=== PATIENT | female | born 1995 | race Caucasian/White ===

== ENCOUNTER → 2017-12-02 16:35 | Outpatient (CLI) | payer SELFPAY ==
--- NOTE | 2017-12-02 16:36 | US_ITS ---
STUDY: SECOND AND THIRD TRIMESTER OBSTETRICAL ULTRASOUND REASON FOR EXAM: Female, 21 years old. Evaluation of anatomy. LMP: 07/22/2017 TECHNIQUE: Transabdominal. PRIOR ULTRASOUND: 10/28/2017 FINDINGS: There is a single intrauterine fetus. The fetus is in a cephalic presentation. There is demonstrated cardiac activity with a heart rate of 143 bpm. There is a normal amniotic fluid volume. The largest amniotic fluid pocket measures 6.7 cm. The placenta is anterior and not low-lying. There are Grade 0 placental changes. The cervix measures 4.8 cm in length. The adnexal regions are not visualized. BIOMETRY: BPD: 4.67 cm: 20 weeks, 1 days HC: 17.5 cm: 20 weeks, 1 days AC: 14.8 cm: 20 weeks, 1 days FL: 3.1 cm: 19 weeks, 5 days CI: 82 FL/AC: 21 HC/AC: 1.18 age by current US: 20 weeks, 1 days. ALBINA by current US: 04/20/2018. Estimated weight: 322 grams, +/- 47 grams, 92 %. Age by LMP: 19 weeks, 0 days. ALBINA by LMP: 04/28/2018. ANATOMY: Gender: Indeterminant Cranium: Normal lateral ventricles. Normal choroid plexus. Normal cerebellum. Normal cisterna magna. Normal face, nose and lips. Chest: Normal 4-chamber heart. Abdomen/Pelvis: Normal diaphragm. Normal stomach. Normal abdominal wall. Normal cord insertion. Normal 3 vessel cord. Normal kidneys. Normal bladder. Spine: Normal cervical spine. Normal thoracic spine. Normal lumbar spine. Normal sacrum. Extremities: Normal bilateral upper extremities. Normal bilateral lower extremities. US/OB Anatomy Scan IMPRESSION: Single living intrauterine fetus of 20 weeks and 1 day with an ALBINA of 04/20/2018. Normal amniotic fluid volume. Grade 0, anterior and not low lying placenta. Cervical length of 4.8 cm. weight of 322 g +/- 47 g, 92nd percentile. Normal anatomy. Electronically Signed: Laura Campbell MD at 0:02 EST , Service support ,
== END ==
PROVIDERS: Family Provider Family Medicine; PCP Family Medicine; Visit Provider Obstetrics & Gynecology
DX: Z34.92 Encounter for supervision of normal pregnancy, unspecified, second trimester (principal); Z3A.20 20 weeks gestation of pregnancy
CPT/HCPCS: 76805

== ENCOUNTER → 2017-12-30 17:55 | Outpatient (CLI) | payer SELFPAY | PROVIDERS: Visit Provider Obstetrics & Gynecology | DX: Z34.90 Encounter for supervision of normal pregnancy, unspecified, unspecified trimester (principal); Z3A.00 Weeks of gestation of pregnancy not specified | CPT/HCPCS: 87086 ==

== ENCOUNTER → 2018-01-27 12:48 | Outpatient (CLI) | payer SELFPAY ==
[2018-01-27 13:43] LABS: Absolute Lymphocyte Count 1.79 X10^3/ul (0.83-4.51); Absolute Neutrophil Count 8.3 X10^3/uL (2.0-7.7); Basophil# 0.02 X10^3/uL; Basophil% 0.2 % (0-1); Eosinophil# 0.18 X10^3/uL; Eosinophils% 1.6 % (0-5); Hematocrit 37.1 % (37-47); Lymphocyte # 1.79 X10^3/ul (4.0); Lymphocyte % 16.1 % (19-41); Mean Corp Hgb Conc 32.3 g/gl (32-36); Mean Corpuscular Hgb 28.4 pg (27.0-32.0); Mean Corpuscular Volume 87.9 fL (81-99); Mean Platelet Vol. 9.7 fl (6.2-12.0); Monocyte# 0.74 X10^3/uL; Monocyte% 6.7 % (0-10); Neutrophil # 8.31 X10^3/uL (2.7-7.7); Neutrophil % 74.7 % (47-70); Platelet Count 217 K/mm3 (150-450); RBC Distribution Width CV 13.3 % (11.6-14.6); RBC Distribution Width SD 42.5 fl (35.1-43.9); Red Blood Count 4.22 M/mm3 (4.2-5.4); White Blood Count 11.1 K/mm3 (4.4-11.0)
[2018-01-27 13:49] LABS: POSITIVE COUNT NO; POSITIVE DIFFERENTIAL NO; POSITIVE MORPHOLOGY NO
[2018-01-27 13:56] LABS: Glucose Challenge Gest 1H 50g 143 mg/dL (70-140)
== END ==
PROVIDERS: Family Provider Family Medicine; PCP Family Medicine; Visit Provider Obstetrics & Gynecology
DX: Z34.01 Encounter for supervision of normal first pregnancy, first trimester (principal)
CPT/HCPCS: 36415; 82950; 85025

== ENCOUNTER → 2018-01-31 06:47 | Outpatient (CLI) | payer SELFPAY ==
[2018-01-31 07:18] LABS: Glucose GTT-Gestation. Fasting 81 mg/dL (<105)
[2018-01-31 08:34] LABS: Glucose GTT-Gestational 1 Hr 147 mg/dL (<190)
[2018-01-31 09:37] LABS: Glucose GTT-Gestational 2 Hr 104 mg/dL (<165)
[2018-01-31 10:33] LABS: Glucose GTT-Gestational 3 Hr 118 L (<145)
== END ==
PROVIDERS: Family Provider Family Medicine; PCP Family Medicine; Visit Provider Nurse Practitioner Women's Health
DX: O99.810 Abnormal glucose complicating pregnancy (principal); Z3A.00 Weeks of gestation of pregnancy not specified
CPT/HCPCS: 36415; 82951; 82952

== ENCOUNTER → 2018-03-24 14:42 | Outpatient (CLI) | payer SELFPAY ==
--- NOTE | 2018-03-24 14:44 | VDLE_ITS ---
Reason For Study: LEG PAIN AND SWELLING RIGHT LEFT GSV is normal. CFV is compressible, spontaneous, phasic, CFV is compressible, spontaneous, phasic, competent, and demonstrates normal competent and demonstrates normal augmentation. augmentation. FV is compressible, spontaneous, phasic, competent and demonstrates normal augmentation. POP V is compressible, spontaneous, phasic, competent and demonstrates normal augmentation. T/P Trunk is compressible. PTV is compressible. RT PerV is compressible. Procedure Exam performed in department. A preliminary report was called and/or faxed to Dr. Thacker. Interpretation Summary There is no evidence of right lower extremity deep vein thrombosis. Right greater saphenous vein appears patent and compressible segmentally. Normal flow patterns left common femoral vein Ordering Physician: Nyla Thacker Referring Physician: Nyla Thacker Performed By: Kimmie Sr RVT
== END ==
PROVIDERS: Family Provider Family Medicine; PCP Family Medicine; Visit Provider Obstetrics & Gynecology
DX: M79.661 Pain in right lower leg (principal)
CPT/HCPCS: 93971

== ENCOUNTER → 2018-03-31 17:39 | Outpatient (CLI) | payer SELFPAY ==
[2018-03-31 19:00] LABS: Group B Strep DNA By PCR Negative (Negative); Internal Control PASS; Probe Check PASS; Specimen Processing Control PASS
== END ==
PROVIDERS: Visit Provider Obstetrics & Gynecology
DX: Z34.90 Encounter for supervision of normal pregnancy, unspecified, unspecified trimester (principal)
CPT/HCPCS: 87081; 87653

== ENCOUNTER → 2018-04-14 12:09 | Outpatient (CLI) | payer SELFPAY ==
--- NOTE | 2018-04-14 12:30 | US_ITS ---
STUDY: SECOND AND THIRD TRIMESTER OBSTETRICAL ULTRASOUND - LIMITED REASON FOR EXAM: Female, 22 years old. growth. LMP: 12/02/2017 PRIOR ULTRASOUND: None. TECHNIQUE: Transabdominal ultrasound evaluation was performed. FINDINGS: There is a single intrauterine fetus. The fetus is in a cephalic presentation. There is demonstrated cardiac activity with a heart rate of 146 bpm. There is a normal amniotic fluid volume. The largest amniotic fluid pocket measures 4.7 cm. The amniotic fluid index (HPAM) is 9.1 cm. The placenta is posterior in location and is not low lying. There are Grade 1 placental changes. The cervix measures 6.3 cm in length. BIOMETRY: BPD: 9.2: 37 weeks, 4 days HC: 33.3: 38 weeks, 0 days AC: 34.1: 38 weeks, 0 days FL: 7.4: 38 weeks, 0 days Age by LMP: 38 weeks, 0 days. ALBINA by LMP: 04/28/2018. age by prior US: weeks, days. ALBINA by prior US: . age by current US: 38 weeks, 0 days. ALBINA by current US: 04/28/2018. Estimated weight: 3348 grams, +/- 489 grams, 61 percentile. Gender: US/OB Limited With Biometrics IMPRESSION: Single live fetus in a vertex presentation. survey not performed on this exam. Placenta is grade 1 and is not low-lying. Cervix is closed. age by current US: 38 weeks, 0 days. ALBINA by current US: 04/28/2018. Estimated weight: 3348 grams, +/- 489 grams, 61 percentile. Electronically Signed: Darien Agarwal MD at 17:51 EDT , Service support ,
== END ==
PROVIDERS: Visit Provider Obstetrics & Gynecology
DX: O26.843 Uterine size-date discrepancy, third trimester (principal); Z3A.00 Weeks of gestation of pregnancy not specified
CPT/HCPCS: 76816

== ENCOUNTER 2018-04-22 11:30 | Inpatient (IN) | payer SELFPAY ==
[2018-04-22 12:01] VITALS: BMI 34.0
[2018-04-22] MEDS: Lactated Ringers 1,000 ML 50 ML IV ×3 (12:15→18:07)
[2018-04-22 12:34] LABS: Hematocrit 39.3 % (37-47); Hemoglobin 12.5 g/dl (12.0-15.0); Mean Corp Hgb Conc 31.8 g/gl (32-36); Mean Corpuscular Volume 78.4 fL (81-99); Mean Platelet Vol. 10.8 fl (6.2-12.0); Platelet Count 230 K/mm3 (150-450); RBC Distribution Width CV 15.3 % (11.6-14.6); RBC Distribution Width SD 43.8 fl (35.1-43.9); Red Blood Count 5.01 M/mm3 (4.2-5.4); White Blood Count 22.7 K/mm3 (4.4-11.0)
[2018-04-22 12:37] LABS: Scan Indicated on CBC? Y/N NO
[2018-04-22] MEDS: fentaNYL-bupivacaine (epidural) 100 ML BAG EPIDURAL ×2 (12:49→17:00)
--- NOTE | 2018-04-22 18:53 | HP.PCM_ITS ---
- Problem List (1) Uterine size-date discrepancy in third trimester Status: Acute Comment: growth us (2) Hypothyroidism (acquired) Status: Acute Comment: managed by Dr White, increased in third trimester (3) Abnormal glucose tolerance test during , antepartum Status: Acute Comment: 3 hr GTT normal (4) Asymptomatic bacteriuria during Status: Acute Comment: treated, culture repeated and negative (5) Supervision of normal Status: Acute Qualifiers: Comment: PRR ALBINA 04/28/18 gender surprise Leigha History Date of Admission: 04/22/18 Final ALBINA: 04/28/18 Gestational age: 39 Weeks and 1 Days History of this : This is a 22 year-old, at 39 weeks gestational age prsents IAL. she presents at 6 cm and regular ctx Medical History: Medical History (Last Reviewed 04/21/18 @ 09:23 by Caren Galloway) Hypothyroid E03.9 thyroid biopsy Allergies No Known Allergies Allergy (Verified 04/21/18 09:22) Home Medications: Home Medications vitamin,calcium,jbafexrs-jagq-pkfid acid tablet 1 tab PO QDAY 10/12/17 promethazine 12.5 mg tablet 12.5 mg PO Q6H PRN #60 tab 02/23/18 levothyroxine 150 mcg tablet 150 mcg PO QDAY 03/10/18 Smoking Status: Never smoker History Past Pregnancies: Past Pregnancies Delivery Date Name GA/Weeks Outcome Route Weight Gender Labor Length Anesthesia Delivery Location Provider FOB Labs: Mom's Labs & Results 04/22/18 04/22/18 12:15 12:15 WBC 22.7 H RBC 5.01 Hgb 12.5 Hct 39.3 MCV 78.4 L MCH 25.0 L MCHC 31.8 L RDW 15.3 H RDW Differential 43.8 Plt Count 230 MPV 10.8 Blood Type A POSITIVE Antibody Screen NEGATIVE Course Did the patient receive Yes care? Labs Blood Type: A RH: POSITIVE RPR/VDRL/Syphilis Nonreactive Rubella status Immune HbSAg Negative Date Done: 10/07/17 Chlamydia Negative Gonorrhea Negative HIV/AIDS Non-Reactive Group B Strep: Negative Current Obstetrical History Gestational Diabetes No Incompetent Cervix No Infertility No IUGR No Macrosomia No Hypertension/Pre-eclampsia No Placenta Previa/Abruption Yes: resolved at 19 wks PTL/PROM No Uterine anomaly No Oligohydramnios No Polyhydramnios No Multiple gestation No Past Medical History Asthma No Diabetes No Hypertension No Heart disease No Mitral valve prolapse No Neurologic/Seizure disorder/ No Migraines Kidney disease No Liver disease No Varicosities No Clotting disorders/Hx of DVT No Thyroid Dysfunction Yes: hypothyroidism.Thyroid biopsy: WNL Other medical diseases No Psychiatric disorders No Major trauma No Abnormal PAP smear No Sleep apnea No Mammogram in the last 2 years No Social History Marital Status: Alleged father Leigha Hx Smoking No Smoking Status Never smoker Expected Delivery Method: Spontaneous Vaginal Review of Systems Constitutional: Denies: Fever, Malaise Eyes: Denies: Blurred vision, Vision Change HEENT: Denies: Head Aches, Visual Changes Cardiovascular: Denies: Chest Pain, Palpitations Respiratory: Denies: Cough, Shortness of Breath, Wheezing Gastrointestinal: Denies: Abdominal Pain, Diarrhea, Nausea, Vomiting Genitourinary: Denies: Dysuria, Hematuria Musculoskeletal: Denies: Joint Pain, Muscle pain Skin: Denies: Lesions, Rash Neurological: Denies: Blurred vision, Focal weakness, Headaches Psychiatric: Denies: Anxiety, Depression Endocrine: Denies: Heat/ Cold Intolerance Hematologic/ Lymphatic: Denies: Easy Bruising, Easy Bleeding Physical Exam General: Alert, Cooperative, No apparent distress HEENT: Atraumatic, Normocephalic. Negative for: Thyromegaly, Lymphadenopathy Cardiovascular: Regular rate Lungs: Normal air movement Abdomen: Soft, Non Tender, Gravid Neurological: Deep Tendon Reflexes 2+/4 and Symmetrical, Neuro grossly intact. Negative for: Clonus [employer]: Normal external genitalia. Negative for: Vulvar lesions Estimated gestational size: Appropriate for gestational size Presentation: Cephalic Assessment/Plan All Active Problems (Last Reviewed 04/21/18 @ 09:23 by Caren Galloway) Uterine size-date discrepancy in third trimester (Acute) Hypothyroidism (acquired) (Acute) Abnormal glucose tolerance test during , antepartum (Acute) Asymptomatic bacteriuria during (Acute) Supervision of normal (Acute) Bleeding in early (Resolved) Marginal placenta previa (Resolved) This is a 22 year-old, at 39 weeks gestational age. exp management
[2018-04-22] MEDS: Oxytocin 30 units/NS 500 ml 30 UNITS/500 ML IV.SOLN 334 UNITS IV (22:32)
[2018-04-22] MEDS: Silver Nitrate (BKC) 4 EACH TOPICAL (22:50)
[2018-04-22] MEDS: Oxytocin 30 units/NS 500 ml 30 UNITS/500 ML IV.SOLN 167 UNITS IV (23:02)
--- NOTE | 2018-04-22 23:23 | PCM.OB.VAG ---
- Problem List (1) Uterine size-date discrepancy in third trimester Status: Acute Comment: growth us (2) Hypothyroidism (acquired) Status: Acute Comment: managed by Dr White, increased in third trimester (3) Abnormal glucose tolerance test during , antepartum Status: Acute Comment: 3 hr GTT normal (4) Asymptomatic bacteriuria during Status: Acute Comment: treated, culture repeated and negative (5) Supervision of normal Status: Acute Qualifiers: Comment: PRR ALBINA 04/28/18 gender surprise Leigha Vaginal Delivery Maternal Presentation: Active Labor G1Po @ 39w1d IAL Amniotic Membrane Rupture Type: Artificial Final ALBINA: 04/28/18 Gestational age: 39 Weeks and 1 Days Date of Procedure: 04/22/18 Pre-Operative Diagnosis: ial Post-Operative Diagnosis: same Surgery/ Procedure Performed: Spontaneous Vaginal Delivery Type of Anesthesia: Epidural, Local with 1% lidocaine Description of Procedure: patient proceeded to complete pushed for over 4 hours with progress, midline episiotomy was cut and the head delivered atraumatically followed by the anterior and posterior shoulders after a loose nuchal cord x 1 was reduced over the infant's head. she delivered the anterior and posterior shoulders without complication and was placed on the maternal abdomen. cord was clamped and cut. placenta delivered spontaneously immediately following and methergine given for some mild atony. 3rd degree perineal laceration was seen and repaired in the usual fashion with 2--0 and 3-0 vicryl. Presentation: EDISON Placental Delivery Description: Spontaneous Placenta Disposition: [facility] Cord Vessel Description: 3 Vessels Cord Gases drawn per routine: ABG, VBG Cord Entanglement: Around neck x 1, loose Estimated Blood Loss: 600 A gender: Male Episiotomy Description: Midline Laceration: Perineal Extension/lac, 2nd degree Medications given after delivery: IV Pitocin Complications: None
[2018-04-23] MEDS: Ondansetron 4 MG/2 ML Vial IV (01:52)
[2018-04-23 03:13] VITALS: BP 107/62; PULSE 112; RESP 16; TEMP 36.9; O2SAT 96
[2018-04-23] MEDS: Naproxen 250 MG Tablet PO ×2 (05:45→15:12)
[2018-04-23] MEDS: Acetaminophen 500 MG Tablet 1000 MG PO ×2 (06:42→21:02)
[2018-04-23] MEDS: oxyCODONE 5 MG Tablet PO ×3 (08:20→18:58)
--- NOTE | 2018-04-23 08:23 | PCM.PN.OB ---
Subjective: tired and painful, doing okay overall. swollen. no cp sob n v voiding - Physical Exam General: Alert, Oriented x3 Vital Signs Temp Pulse Resp BP Pulse Ox 98.5 F 112 H 16 107/62 96 04/23/18 03:13 04/23/18 03:13 04/23/18 03:13 04/23/18 03:13 04/23/18 03:13 Oxygen Delivery Method Room Air Weight: 189 lb 3.2 oz Body Mass Index (BMI) 34.0 Intake and Output for Last 24 Hours 04/21/18 04/22/18 04/23/18 23:59 23:59 23:59 Output Total 400 / 400 Balance -400 / -400 Laboratory Tests Past 24 Hrs 04/22/18 04/22/18 12:15 12:15 WBC 22.7 H RBC 5.01 Hgb 12.5 Hct 39.3 MCV 78.4 L MCH 25.0 L MCHC 31.8 L RDW 15.3 H RDW Differential 43.8 Plt Count 230 MPV 10.8 Blood Type A POSITIVE Antibody Screen NEGATIVE Medical Necessity - Tobacco Use Smoking Status: Never smoker Assessment/Plan All Active Problems (Last Reviewed 04/21/18 @ 09:23 by Caren Galloway) Uterine size-date discrepancy in third trimester (Acute) Hypothyroidism (acquired) (Acute) Abnormal glucose tolerance test during , antepartum (Acute) Asymptomatic bacteriuria during (Acute) Supervision of normal (Acute) Bleeding in early (Resolved) Marginal placenta previa (Resolved) s/p routine care doing well
[2018-04-23 09:55] VITALS: BP 93/55; PULSE 116; RESP 20; TEMP 36.4; O2SAT 97
[2018-04-23] MEDS: Dibucaine 30 GM Tube 1 APPLIC TOPICAL (10:21)
[2018-04-23] MEDS: Senna/Docusate Sodium 1 Tablet PO (10:21)
[2018-04-23 13:00] VITALS: BP 100/59; PULSE 110; RESP 18; TEMP 36.5; O2SAT 96
[2018-04-23] MEDS: Prenatal Vits Tablet 1 TABLET PO (13:18)
[2018-04-23 17:00] VITALS: BP 84/83; PULSE 103; RESP 16; TEMP 36.5; O2SAT 96
[2018-04-23 20:00] VITALS: BP 95/54; PULSE 115; RESP 16; TEMP 36.6; O2SAT 99
[2018-04-24 03:00] VITALS: BP 97/57; PULSE 109; RESP 18; TEMP 36.5; O2SAT 97
[2018-04-24] MEDS: oxyCODONE 5 MG Tablet PO ×3 (03:14→13:40)
[2018-04-24] MEDS: Levothyroxine 150 MCG Tablet PO (05:47)
--- NOTE | 2018-04-24 07:31 | PCM.PN.OB ---
Subjective: doing well no complaints - Physical Exam General: Alert, Oriented x3 Vital Signs Temp Pulse Resp BP Pulse Ox 97.7 F L 109 H 18 97/57 L 97 04/24/18 03:00 04/24/18 03:00 04/24/18 03:00 04/24/18 03:00 04/24/18 03:00 Oxygen Delivery Method Room Air Weight: 189 lb 3.2 oz Body Mass Index (BMI) 34.0 Intake and Output for Last 24 Hours 04/22/18 04/23/18 04/24/18 23:59 23:59 23:59 Output Total 400 / 400 Balance -400 / -400 Medical Necessity - Tobacco Use Smoking Status: Never smoker Assessment/Plan All Active Problems (Last Reviewed 04/21/18 @ 09:23 by Caren Galloway) Uterine size-date discrepancy in third trimester (Acute) Hypothyroidism (acquired) (Acute) Abnormal glucose tolerance test during , antepartum (Acute) Asymptomatic bacteriuria during (Acute) Supervision of normal (Acute) Bleeding in early (Resolved) Marginal placenta previa (Resolved) s/p routine care [facility]
--- NOTE | 2018-04-24 07:32 | DCINST_ITS ---
Discharge Diet: No Restrictions Discharge Activity: Return to Normal Activity, May not drive while taking narcotic pain medications., May Shower May resume sexual activity in: 4-6 weeks Call your doctor if your incision/area has: Continuous Slow Oozing, Sudden Increased Bleeding, Increased Pain/ Swelling, Increased Redness, Foul Smelling Discharge Additional Instructions: If you experience any of the following, contact your healthcare provider. * Bleeding that soaks a pad every hour for 2 hours * Fever 100.4 or higher * Unrelieved incision or abdominal pain * Swelling, redness, discharge or bleeding from your incision or episiotomy site * Your incision begins to separate * Problems urinating (including inability to urinate or burning while urinating) . * Visual changes * Severe headache * Flu-like symptoms * Pain or redness in one of both of your breasts * Pain, warmth, tenderness or swelling in your legs, especially the calf area * Frequent nausea and vomiting * Symptoms of depression or anxiety If you experience any of the following, call 911 or go to the nearest Emergency Room. * Chest pain * Problems breathing * Seizure activity * Partial or complete paralysis of a body part, slurred speech, weakness or drooping of the face, or a sudden inability to walk or hold your balance Allergies/Adverse Reactions: Allergies No Known Allergies Allergy (Verified 04/21/18 09:22) Medications to take at Discharge vitamin,calcium,pejvqdrb-qqjy-ovmga acid tablet 1 tab PO QDAY 10/12/17 promethazine 12.5 mg tablet 12.5 mg PO Q6H PRN #60 tab 02/23/18 levothyroxine 150 mcg tablet 150 mcg PO QDAY 03/10/18 Please Follow Up With: Nyla Thacker MD - [phone] When: Call to make an appointment with your doctor in 6 weeks. If you had elevated Blood pressure or 4th degree laceration you will need to be seen in 2 weeks. Primary Care Physician: Care Physician,No Primary [Primary Care Provider] - Test Results: Test results from this visit will be discussed in further detail at your follow- up appointment, if applicable.
--- NOTE | 2018-04-24 07:32 | PCM.DCVAG ---
Discharge Diet: No Restrictions Discharge Activity: Return to Normal Activity, May not drive while taking narcotic pain medications., May Shower May resume sexual activity in: 4-6 weeks Call your doctor if your incision/area has: Continuous Slow Oozing, Sudden Increased Bleeding, Increased Pain/ Swelling, Increased Redness, Foul Smelling Discharge Additional Instructions: If you experience any of the following, contact your healthcare provider. Bleeding that soaks a pad every hour for 2 hours Fever 100.4 or higher Unrelieved incision or abdominal pain Swelling, redness, discharge or bleeding from your incision or episiotomy site Your incision begins to separate Problems urinating (including inability to urinate or burning while urinating). Visual changes Severe headache Flu-like symptoms Pain or redness in one of both of your breasts Pain, warmth, tenderness or swelling in your legs, especially the calf area Frequent nausea and vomiting Symptoms of depression or anxiety If you experience any of the following, call 911 or go to the nearest Emergency Room. Chest pain Problems breathing Seizure activity Partial or complete paralysis of a body part, slurred speech, weakness or drooping of the face, or a sudden inability to walk or hold your balance Allergies/Adverse Reactions: Allergies No Known Allergies Allergy (Verified 04/21/18 09:22) Medications to take at Discharge vitamin,calcium,zarhqjlt-hgsf-ysawc acid tablet 1 tab PO QDAY 10/12/17 promethazine 12.5 mg tablet 12.5 mg PO Q6H PRN #60 tab 02/23/18 levothyroxine 150 mcg tablet 150 mcg PO QDAY 03/10/18 Please Follow Up With: Nyla Thacker MD - [phone] When: Call to make an appointment with your doctor in 6 weeks. If you had elevated Blood pressure or 4th degree laceration you will need to be seen in 2 weeks. Primary Care Physician: Care Physician,No Primary [Primary Care Provider] - Test Results: Test results from this visit will be discussed in further detail at your follow-up appointment, if applicable.
[2018-04-24 08:50] VITALS: BP 91/51; PULSE 99; RESP 16; TEMP 37.1; O2SAT 96
[2018-04-24] MEDS: Senna/Docusate Sodium 1 Tablet PO (09:24)
[2018-04-24] MEDS: Hydrocortisone 2.5% Crm 1 APPLIC TOPICAL (09:24)
[2018-04-24] MEDS: Naproxen 250 MG Tablet PO (11:00)
[2018-04-24] MEDS: Prenatal Vits Tablet 1 TABLET PO (12:53)
[2018-04-24 14:00] VITALS: BP 99/54; PULSE 106; RESP 18; TEMP 36.7; O2SAT 97
[2018-04-24 20:59] VITALS: BP 106/70; PULSE 102; RESP 17; TEMP 37.1
== END 2018-04-24 20:35 | disposition home or self-care (01) | DRG 775 ==
PROVIDERS: Admitting Provider Obstetrics & Gynecology; Visit Provider Obstetrics & Gynecology
DX: O26.843 Uterine size-date discrepancy, third trimester (principal); O75.89 Other specified complications of labor and delivery; O69.81X0 Labor and delivery complicated by cord around neck, without compression, not applicable or unspecified; O99.284 Endocrine, nutritional and metabolic diseases complicating childbirth; E03.9 Hypothyroidism, unspecified; Z79.899 Other long term (current) drug therapy; Z3A.39 39 weeks gestation of pregnancy; Z37.0 Single live birth
CPT/HCPCS: 59050; 85027; 86850; 86900; 99218; J7120; G0378; J2405

== ENCOUNTER → 2018-06-02 18:13 | Outpatient (CLI) | payer SELFPAY ==
[2018-06-08 08:15] LABS: HPV Reflexed? NOT INDICATED
== END ==
PROVIDERS: Visit Provider Obstetrics & Gynecology
DX: Z12.4 Encounter for screening for malignant neoplasm of cervix (principal)
CPT/HCPCS: 88175; G0145

== ENCOUNTER → 2019-03-14 08:26 | Outpatient (CLI) | payer SELFPAY ==
[2019-02-21 08:27] VITALS: BMI 26.0
[2019-03-14 10:24] LABS: T4 Free Direct 1.27 ng/dL (0.76-1.46); Thyroid Stim Hormone (TSH) 0.61 uIU/mL (0.358-3.74)
== END ==
PROVIDERS: Referring Provider Family Medicine; Visit Provider Family Medicine
DX: E03.9 Hypothyroidism, unspecified (principal)
CPT/HCPCS: 36415; 84439; 84443

== ENCOUNTER → 2019-06-09 09:33 | Outpatient (CLI) | payer SELFPAY ==
[2019-02-21 08:27] VITALS: BMI 26.0
[2019-06-09 13:05] LABS: T4 Free Direct 1.37 ng/dL (0.76-1.46); Thyroid Stim Hormone (TSH) 1.62 uIU/mL (0.358-3.74)
== END ==
PROVIDERS: Family Provider Family Medicine; PCP Family Medicine; Referring Provider Family Medicine; Visit Provider Family Medicine
DX: E03.9 Hypothyroidism, unspecified (principal)
CPT/HCPCS: 36415; 84439; 84443

== ENCOUNTER → 2019-07-03 17:14 | Outpatient (CLI) | payer SELFPAY ==
[2019-07-03 12:04] VITALS: BMI 26.0
[2019-07-03 19:26] LABS: Chlamydia Trachomatis by PCR Negative (Negative); Neisserai gonorrhoeae by PCR Negative (Negative); Probe Check PASS; Sample Adequacy Control PASS; Specimen Processing Control PASS
== END ==
PROVIDERS: Family Provider Family Medicine; PCP Family Medicine; Referring Provider Obstetrics & Gynecology; Visit Provider Obstetrics & Gynecology
DX: Z34.90 Encounter for supervision of normal pregnancy, unspecified, unspecified trimester (principal)
CPT/HCPCS: 87086; 87088; 87491; 87591

== ENCOUNTER → 2019-08-15 11:04 | Outpatient (CLI) | payer SELFPAY ==
[2019-07-31 10:15] VITALS: BMI 26.0
[2019-08-15 12:00] LABS: Absolute Lymphocyte Count 1.69 X10^3/uL (0.83-4.51); Absolute Neutrophil Count 5.3 X10^3/uL (2.0-7.7); Basophil# 0.02 X10^3/uL; Basophil% 0.3 % (0-1); Eosinophil# 0.07 X10^3/uL; Eosinophils% 0.9 % (0-5); Hematocrit 40.9 % (37-47); Hemoglobin 13.4 g/dL (12.0-15.0); Lymphocyte # 1.69 X10^3/ul (4.0); Lymphocyte % 22.7 % (19-41); Mean Corp Hgb Conc 32.8 g/dL (32-36); Mean Corpuscular Volume 85.6 fL (81-99); Mean Platelet Vol. 10.1 fl (6.2-12.0); Monocyte# 0.31 X10^3/uL; Monocyte% 4.2 % (0-10); NRBC Flagged by Analyzer 0 % (0-5); Neutrophil # 5.31 X10^3/uL (2.7-7.7); Neutrophil % 71.2 % (47-70); Platelet Count 211 K/mm3 (150-450); RBC Distribution Width CV 14.1 % (11.6-14.6); RBC Distribution Width SD 43.9 fl (35.1-43.9); Red Blood Count 4.78 M/mm3 (4.2-5.4); White Blood Count 7.5 K/mm3 (4.4-11.0)
[2019-08-15 12:59] LABS: HIV - WCH Non-Reactive (Nonreactive); Hepatitis B Surface Antigen Non-Reactive (Nonreactive); Rubella IgG 45.1 IU/mL
[2019-08-17 02:20] LABS: Rapid Plasmin Reagin (RPR) NONREACTIVE (NONREACTIVE)
== END ==
PROVIDERS: Family Provider Family Medicine; PCP Family Medicine; Referring Provider Obstetrics & Gynecology; Visit Provider Obstetrics & Gynecology
DX: Z34.90 Encounter for supervision of normal pregnancy, unspecified, unspecified trimester (principal)
CPT/HCPCS: 36415; 85025; 86592; 86703; 86762; 86850; 86900; 86901; 87340

== ENCOUNTER → 2019-09-11 11:13 | Outpatient (CLI) | payer SELFPAY ==
[2019-08-28 10:48] VITALS: BMI 26.0
[2019-09-11 12:26] LABS: T4 Free Direct 1.08 ng/dL (0.76-1.46); Thyroid Stim Hormone (TSH) 6.62 uIU/mL (0.358-3.74)
== END ==
PROVIDERS: Family Provider Family Medicine; PCP Family Medicine; Referring Provider Family Medicine; Visit Provider Family Medicine
DX: E03.9 Hypothyroidism, unspecified (principal)
CPT/HCPCS: 36415; 84439; 84443

== ENCOUNTER → 2019-11-03 10:16 | Outpatient (CLI) | payer SELFPAY ==
[2019-10-23 11:02] VITALS: BMI 26.0
[2019-11-03 12:58] LABS: T4 Free Direct 1.13 ng/dL (0.76-1.46); Thyroid Stim Hormone (TSH) 1.78 uIU/mL (0.358-3.74)
== END ==
PROVIDERS: PCP Family Medicine; Referring Provider Family Medicine; Visit Provider Family Medicine
DX: E03.9 Hypothyroidism, unspecified (principal)
CPT/HCPCS: 36415; 84439; 84443

== ENCOUNTER → 2019-11-13 09:17 | Outpatient (CLI) | payer SELFPAY ==
[2019-10-23 11:02] VITALS: BMI 26.0
[2019-11-13 09:46] LABS: Absolute Lymphocyte Count 1.66 X10^3/uL (0.83-4.51); Absolute Neutrophil Count 7.3 X10^3/uL (2.0-7.7); Basophil# 0.03 X10^3/uL; Basophil% 0.3 % (0-1); Eosinophil# 0.11 X10^3/uL; Eosinophils% 1.1 % (0-5); Hemoglobin 12.9 g/dL (12.0-15.0); Lymphocyte # 1.66 X10^3/ul (4.0); Lymphocyte % 17.1 % (19-41); Mean Corp Hgb Conc 32.3 g/dL (32-36); Mean Corpuscular Hgb 29.3 pg (27.0-32.0); Mean Corpuscular Volume 90.9 fL (81-99); Mean Platelet Vol. 9.8 fl (6.2-12.0); Monocyte# 0.51 X10^3/uL; Monocyte% 5.2 % (0-10); NRBC Flagged by Analyzer 0 % (0-5); Neutrophil # 7.25 X10^3/uL (2.7-7.7); Neutrophil % 74.7 % (47-70); Platelet Count 177 K/mm3 (150-450); RBC Distribution Width CV 13.6 % (11.6-14.6); RBC Distribution Width SD 45.8 fl (35.1-43.9); White Blood Count 9.7 K/mm3 (4.4-11.0)
[2019-11-13 10:02] LABS: Glucose Challenge Gest 1H 50g 103 mg/dL (70-140)
== END ==
PROVIDERS: PCP Family Medicine; Referring Provider Obstetrics & Gynecology; Visit Provider Obstetrics & Gynecology
DX: Z34.80 Encounter for supervision of other normal pregnancy, unspecified trimester (principal)
CPT/HCPCS: 36415; 82950; 85025

== ENCOUNTER → 2019-12-25 10:39 | Outpatient (CLI) | payer SELFPAY ==
[2019-12-25 11:16] LABS: T4 Free Direct 1.06 ng/dL (0.76-1.46); Thyroid Stim Hormone (TSH) 2.31 uIU/mL (0.358-3.74)
== END ==
PROVIDERS: PCP Family Medicine; Referring Provider Nurse Practitioner Women's Health; Visit Provider Nurse Practitioner Women's Health
DX: E03.9 Hypothyroidism, unspecified (principal)
CPT/HCPCS: 36415; 84439; 84443

== ENCOUNTER → 2020-01-08 | Outpatient (CLI) | payer SELFPAY | END | disposition home or self-care (01) | LOC: LABSPEC 14:32 | PROVIDERS: PCP Family Medicine; Visit Provider Obstetrics & Gynecology | DX: Z34.80 Encounter for supervision of other normal pregnancy, unspecified trimester (principal) | CPT/HCPCS: 87081 ==

== ENCOUNTER 2020-02-01 18:40 | Outpatient (CLI) | payer SELFPAY ==
[2020-02-01 18:51] VITALS: BP 111/71; PULSE 88; BMI 32.5
--- NOTE | 2020-02-02 02:05 | OB.TRI.PN_ITS ---
Progress Notes Date of Service: 02/01/20 Progress Note: FHT: 130 Moderate variability reactive no decelerations category I tracing [place]: no regular Contractions decreased movement, reactive NST dc home - Problem List (1) Decreased movement Status: Acute Multi Select Codes - Urinary/Genital Urinary/Genital CPT Codes: 30306-28 non-stress test Interp
== END 2020-02-01 19:35 | disposition home or self-care (01) ==
LOC: WPOUT 18:47 → WP 18:48
PROVIDERS: PCP Family Medicine; Visit Provider Obstetrics & Gynecology
DX: O36.8190 Decreased fetal movements, unspecified trimester, not applicable or unspecified (principal); Z3A.00 Weeks of gestation of pregnancy not specified
CPT/HCPCS: 59025; 59050; 99218; G0378

== ENCOUNTER 2020-02-07 19:00 | Inpatient (IN) | payer SELFPAY ==
[2019-09-27 12:03] VITALS: BMI 26.0
[2020-02-05 10:49] VITALS: BMI 32.5
[2020-02-07 19:19] VITALS: PULSE 98; O2SAT 96
[2020-02-07 19:23] VITALS: BP 108/70; PULSE 86; TEMP 36.9
[2020-02-07] MEDS: Lactated Ringers 1,000 ML 50 ML IV (19:30)
[2020-02-07 19:41] LABS: Absolute Lymphocyte Count 2.41 X10^3/uL (0.83-4.51); Absolute Neutrophil Count 7.4 X10^3/uL (2.0-7.7); Basophil# 0.03 X10^3/uL; Basophil% 0.3 % (0-1); Eosinophil# 0.08 X10^3/uL; Eosinophils% 0.8 % (0-5); Hematocrit 39.9 % (37-47); Hemoglobin 13.2 g/dL (12.0-15.0); Lymphocyte # 2.41 X10^3/ul (4.0); Lymphocyte % 22.7 % (19-41); Mean Corp Hgb Conc 33.1 g/dL (32-36); Mean Corpuscular Hgb 28.6 pg (27.0-32.0); Mean Corpuscular Volume 86.4 fL (81-99); Mean Platelet Vol. 10.3 fl (6.2-12.0); Monocyte# 0.58 X10^3/uL; Monocyte% 5.5 % (0-10); NRBC Flagged by Analyzer 0 % (0-5); Neutrophil # 7.43 X10^3/uL (2.7-7.7); Neutrophil % 69.9 % (47-70); Platelet Count 180 K/mm3 (150-450); RBC Distribution Width CV 14.1 % (11.6-14.6); RBC Distribution Width SD 44.3 fl (35.1-43.9); Red Blood Count 4.62 M/mm3 (4.2-5.4); White Blood Count 10.6 K/mm3 (4.4-11.0)
[2020-02-07 19:46] VITALS: BMI 32.8
[2020-02-07] MEDS: miSOPROStol 25 MCG TABLET VAGINAL (20:08)
[2020-02-07 21:52] VITALS: BP 104/67; PULSE 83; TEMP 36.4; O2SAT 97
[2020-02-08] VITALS (57 sets, daily range): BP systolic 86–117; BP diastolic 50–80; PULSE 70–104; RESP 16–18; TEMP 36.3–37.1; O2SAT 92–99
[2020-02-08] MEDS: Lactated Ringers 500 ML 999 ML IV ×2 (01:02→03:43)
[2020-02-08] MEDS: fentaNYL-bupivacaine (epidural) 100 ML BAG EPIDURAL ×2 (02:22→06:41)
[2020-02-08] MEDS: Acetaminophen 325 MG Tablet PO (02:39)
[2020-02-08] MEDS: Ondansetron 4 MG/2 ML Vial IV (04:58)
[2020-02-08] MEDS: Lactated Ringers 1,000 ML 200 ML IV (04:59)
[2020-02-08] MEDS: Oxytocin 30 units/NS 500 ml 30 UNITS/500 ML IV.SOLN IV (08:42)
[2020-02-08] MEDS: Oxytocin 30 units/NS 500 ml 30 UNITS/500 ML IV.SOLN 334 UNITS IV (11:01)
--- NOTE | 2020-02-08 11:25 | PCM.HPOB.BLA ---
- Problem List (1) Hypothyroidism (acquired) Status: Acute Comment: managed by Dr Riley, increased in third trimester (2) Status: Acute Qualifiers: Comment: Declines genetic, carrier and NTD. Anatomy US normal (3) Supervision of other normal Status: Acute Comment: PRR ALBINA 02/02/20 surprise PC: Leobardo Spouse: Leigha History and Physical Date of Admission: 02/07/20 Intake Vital Signs 02/05/20 BMI 32.5 02/05/20 Height 5 ft 2 in 02/05/20 Weight: 176 lb 6 oz 02/05/20 BMI 32.2 02/05/20 BP 96/68 Intake Visit Reasons: 40 WK OB Director Of Audiology Required: No Is patient in pain?: No Allergies No Known Allergies Allergy (Verified 02/05/20 10:45) Medications PNV 22-iron 27 mg iron-folic acid 1 mg-docusate 50 mg-dha 250 mg pack 1 tab PO QHS ea 07/03/19 [History Confirmed 02/05/20] levothyroxine 150 mcg tablet 150 mcg PO DAILY 09/27/19 [History Confirmed 02/05/20] Last Menstral Period: 04/28/19 Zika: Zika virus screening: Negative : No PFSH PFSH Medical History Hypothyroid (Acute) Loss of consciousness (Acute) thyroid biopsy (Acute) Family History Grandfather Heart disease Father Hypertension Social History (Updated 02/05/20 @ 11:[address] Nyla Thacker MD) adopted: No household members: family housing: house number of children: 1 current occupational exposures/hazards: No history of recent travel: No sexually active: Yes Smoking Status: Never smoker alcohol intake: never substance use type: does not use what type of physical activity do you participate in: none seatbelt use: always do you feel safe at home: Yes additional social history: Spouse Leigha Pregancy History 2 Elective abortions Hx Para 1 Spontaneous abortions Hx # Term Pregnancies Ectopic pregnancies Hx # Pregnancies Multiple births # of living children 1 Past Pregnancies Del. Date Name GA/Weeks Outcome Route Bth Weight Gen Labor Lgth Anesthesia Del Locatn Provider FOB 04/22/18 Leobardo 39 live - full term 9lbs 12oz Male epidural [facility]ANIE Delivery Date: 04/22/18 On 04/26/18 @ 16:10 Chrissy Mcnamara Prolonged 2nd stage- [id number] pushing HPI 40 WK OB: Details: MARKO RIVERS is a 24 year old @ 40w6d presents IOL postdates. OB Visit ALBINA Calculator Estimated Delivery Date Method Current WG Current Estimate 02/02/20 LMP (Certain) 40w 3d Other Estimates 02/06/20 Ultrasound #1 39w 6d Expected Delivery Route/Plan Labor Preferences- labor support person: Leigha pain management options preferred: epidural cut cord/dad catch: yes : yes PP control planned: condoms discussed possible routes of delivery and associated risks: [] special requests: Specific Issue/Plans flu vaccine: declines tdap vaccine: given rhogam: na LARC form signed: yes movement and labor precautions reviewed. Problem list reviewed and updated with the most current plan of care details and appropriate orders placed. Relevant counseling for the gestational age provided. Continue routine care and follow up unless otherwise noted in visit notes/problem list details Initial Weight: 146 lb Date EGA Weight BP Urine Prot Glucose FHR FuHt Pres Dilation Effaced St Visit Note 07/31/19 13w 3d 150 lb 4 oz (+4 lb 4 oz) 90/64 Negative Negative 155 no vb cramping 08/28/19 17w 3d 151 lb (+5 lb) 100/60 90/64 Negative Negative 150 09/27/19 21w 5d 149 lb 4 oz (+3 lb 4 oz) 110/60 Trace Negative 154 No VB, LOF. Good FM. 10/23/19 25w 3d 158 lb 2 oz (+12 lb 2 oz) 114/77 Negative Negative 140 SM- no vb lof good fm no regular ctx. thyroid medicine adjusted, dr riley ordered fu bloodwork 11/13/19 28w 3d 163 lb (+17 lb) 110/82 155 28 SM- no vb lof good fm no regular ctx 11/27/19 30w 3d 164 lb (+18 lb) 110/74 Negative Negative 148 30 Cephalic MH-no VB, LOF. Good FM. Some discomfort to coccyx-enc chiropractor. 12/11/19 32w 3d 167 lb 4 oz (+21 lb 4 oz) 113/67 Negative Negative 145 32 Cephalic SM- no vb lof good fm no regular ctx 12/25/19 34w 3d 169 lb 8 oz (+23 lb 8 oz) 108/68 Negative Negative 137 34 MH-Good Fm. NO Vb, LOF. TSH and T4 today. 01/08/20 36w 3d 174 lb (+28 lb) 84/54 Negative Negative 135 37 Cephalic 0 SM- no vb lof good fm n oregular ctx 01/15/20 37w 3d 175 lb (+29 lb) 106/74 145 37 Cephalic 0 SM- no vb lof good fm no regular ctx 01/22/20 38w 3d 175 lb 6 oz (+29 lb 6 oz) 112/76 Negative Negative 133 38 Cephalic 1 30 -3 MH-No VB, LOF. Good Fm. No reg CTX 01/29/20 39w 3d 175 lb 6 oz (+29 lb 6 oz) 110/78 Negative Negative 130 38 Cephalic 1 SM- no vb lof good fm no regular ctx 02/05/20 40w 3d 176 lb 6 oz (+30 lb 6 oz) 96/68 Negative Negative 130 41 Cephalic 1.5 50 -2 SM- no vb lof good fm no regular ctx. plan IOL wednesday night Notes Visit Date: 02/05/20 ??No visit notes to display Visit Date: 01/29/20 ??No visit notes to display Visit Date: 01/22/20 ??No visit notes to display Visit Date: 01/15/20 ??No visit notes to display Visit Date: 01/08/20 ??No visit notes to display Visit Date: 12/25/19 ??No visit notes to display Visit Date: 12/11/19 ??No visit notes to display Visit Date: 11/27/19 ??No visit notes to display Visit Date: 11/13/19 ??No visit notes to display Visit Date: 10/23/19 ??No visit notes to display Visit Date: 09/27/19 ??No visit notes to display Visit Date: 08/28/19 ??No visit notes to display Visit Date: 07/31/19 ??no vb cramping ??Nyla Thacker MD on 07/31/19 ACOG First Trimester First Trimester: Desire for , Alcohol, Tobacco Cessation, Illicit/Recreational Drug/Substance Use, Intimate Partner Violence, Barriers to care, Unstable Housing, Communication Barriers, Environmental/Work Hazards, Anticipated Course of Care, Toxoplasmosis Precations, Use of Any medications, Sexual activity, Exercise, Dental Care, Sauna/Hot tub use, Seat Belt use, Childbirth classes/Hospital facilities, , Travel, Indications for US and Screening for Aneuploidy Second Trimester Second Trimester: Signs and Symptoms of Labor, Selecting a care provider, Reproductive Life Planning, Care Planning, Tobacco Cessation, Depression/Anxiety and Intimate Partner Violence Third Trimester Third Trimester: Pain Management Plans, Labor support person(s), Immediate Larc, Circumcision preference, Movement Monitoring, Signs and Symptoms of Preeclampsia, Labor Signs, Education, Family Medical Leave or Disability Forms, Depression, Depression and Intimate Partner Violence; discussed Tobacco Cessation Diagnostics Diagnostics Diagnostics Glucose 1 Hr 50 gm 103 mg/dL (70-140) 11/13/19 Hgb 12.9 g/dL (12.0-15.0) 11/13/19 Hct 40.0 % (37-47) 11/13/19 Details: HIV: Urine Culture: Sequential Screen: NIPT Screen: ROS Const Reports system reviewed and no additional complaints, except as docu Card Reports system reviewed and no additional complaints, except as docu Resp Reports system reviewed and no additional complaints, except as docu GI Reports system reviewed and no additional complaints, except as docu, Reports nausea Reports system reviewed and no additional complaints, except as docu Musc Reports system reviewed and no additional complaints, except as docu Exam Const General: cooperative, healthy appearing, comfortable, anxious HENWY Head: normal to inspection Nose: external nose normal Face and sinus: normal facial exam Neck Neck: normal visual inspection, full ROM, no lymphadenopathy Thyroid: thyroid normal Chest Chest palpation & inspection: normal inspection of the chest Resp Effort & Inspection: normal respiratory effort GI Inspection: normal to inspection Palpation: soft, other (gravid uterus) Other: infant vertex and appropriate size for gestational age Other: Cervical Exam: Extrem General: pedal edema Results POC Urinalysis 2 Dip (Clinic) Office Urine Glucose Negative Last Edit by Lila Mckeon on 02/05/20 10:52 Office Urine Protein Negative Last Edit by Lila Mckeon on 02/05/20 10:52 Assessment & Plan Problems 1. Decreased movement O36.8190 2. 40 weeks gestation of Z3A.40 Declines genetic, carrier and NTD. Anatomy US normal 3. Supervision of other normal Z34.80 PRR ALBINA 02/02/20 surprise PC: Leobardo Spouse: Leigha 4. Hypothyroidism (acquired) E03.[address] Riley, increased in third trimester plan IOL cytotec then pitocin epi PRN gbs neg Orders Orders: POC Urinalysis 2 Dip (Clinic) Today Coding Level of Care Code OB Routine Diagnoses Decreased movement O36.8190 40 weeks gestation of Z3A.40 ??Weeks of gestation: 40 weeks Supervision of other normal Z34.80 Hypothyroidism (acquired) E03.9
--- NOTE | 2020-02-08 11:26 | PCM.OPRPT ---
Problem List (1) Hypothyroidism (acquired) Status: Acute Comment: managed by Dr Riley, increased in third trimester (2) Status: Acute Qualifiers: Comment: Declines genetic, carrier and NTD. Anatomy US normal (3) Supervision of other normal Status: Acute Comment: PRR ALBINA 02/02/20 surprise PC: Leobardo Spouse: Leigha Vaginal Delivery Maternal Presentation: Medically Indicated Induction 40w6d IOL Medical Reason for Induction: Post term Amniotic Membrane Rupture Type: Artificial Amniotic Fluid Description: Clear Final ALBINA: 02/02/20 Gestational age: 40 Weeks and 6 Days Date of Procedure: 02/08/20 Pre-Operative Diagnosis: iol postdates Post-Operative Diagnosis: same Surgery/ Procedure Performed: Spontaneous Vaginal Delivery Type of Anesthesia: Epidural Description of Procedure: Patient began pushing and delivered the head in the EDISON presentation. The head was delivered atraumatically . The anterior and posterior shoulders delivered without complication followed by the rest of the infant and the was placed on the maternal abdomen. Delayed cord clamping was employed for approximately 60 seconds. Cord was clamped and cut and gentle traction was applied to the cord and the placenta delivered spontaneously immediately following it was noted to be intact with three-vessel cord. The perineum and vagina were inspected and to have a second-degree perineal laceration that was repaired in the usual fashion with 3-0 Vicryl Rapide. EBL was 300 cc. Patient and infant tolerated delivery well. Presentation: EDISON Placental Delivery Description: Spontaneous Placenta Disposition: [facility] Cord Entanglement: None Estimated Blood Loss: 300 Infant A gender: Male Episiotomy Description: None Laceration: Perineal Extension/lac, 2nd degree Medications given after delivery: IV Pitocin Complications: None Multi Select Codes - Urinary/Genital Urinary/Genital CPT Codes: 66331 Vaginal Delivery [facility]
[2020-02-08] MEDS: Naproxen 250 MG Tablet 500 MG PO (12:22)
--- NOTE | 2020-02-08 12:56 | DCINST_ITS ---
Discharge Diet: No Restrictions Discharge Activity: Return to Normal Activity, May not drive while taking narcotic pain medications., May Shower May resume sexual activity in: 4-6 weeks Call your doctor if your incision/area has: Continuous Slow Oozing, Sudden Increased Bleeding, Increased Pain/ Swelling, Increased Redness, Foul Smelling Discharge Additional Instructions: If you experience any of the following, contact your healthcare provider. * Bleeding that soaks a pad every hour for 2 hours * Fever 100.4 or higher * Unrelieved incision or abdominal pain * Swelling, redness, discharge or bleeding from your incision or episiotomy site * Your incision begins to separate * Problems urinating (including inability to urinate or burning while urinating). * Visual changes * Severe headache * Flu-like symptoms * Pain or redness in one of both of your breasts * Pain, warmth, tenderness or swelling in your legs, especially the calf area * Frequent nausea and vomiting * Symptoms of depression or anxiety If you experience any of the following, call 911 or go to the nearest Emergency Room. * Chest pain * Problems breathing * Seizure activity * Partial or complete paralysis of a body part, slurred speech, weakness or drooping of the face, or a sudden inability to walk or hold your balance Allergies/Adverse Reactions: Allergies No Known Allergies Allergy (Verified 02/05/20 10:45) Medications to take at Discharge PNV 22-iron 27 mg iron-folic acid 1 mg-docusate 50 mg-dha 250 mg pack 1 tab PO QHS ea 07/03/19 levothyroxine 150 mcg tablet 150 mcg PO DAILY 09/27/19 Please Follow Up With: Nyla Thacker MD - [phone] When: Call to make an appointment with your doctor in 6 weeks. If you had elevated Blood pressure or 4th degree laceration you will need to be seen in 2 weeks. Primary Care Physician: Floyd Riley MD [Primary Care Provider] - Test Results: Test results from this visit will be discussed in further detail at your follow- up appointment, if applicable.
--- NOTE | 2020-02-08 12:56 | PCM.DCVAG ---
Discharge Diet: No Restrictions Discharge Activity: Return to Normal Activity, May not drive while taking narcotic pain medications., May Shower May resume sexual activity in: 4-6 weeks Call your doctor if your incision/area has: Continuous Slow Oozing, Sudden Increased Bleeding, Increased Pain/ Swelling, Increased Redness, Foul Smelling Discharge Additional Instructions: If you experience any of the following, contact your healthcare provider. Bleeding that soaks a pad every hour for 2 hours Fever 100.4 or higher Unrelieved incision or abdominal pain Swelling, redness, discharge or bleeding from your incision or episiotomy site Your incision begins to separate Problems urinating (including inability to urinate or burning while urinating). Visual changes Severe headache Flu-like symptoms Pain or redness in one of both of your breasts Pain, warmth, tenderness or swelling in your legs, especially the calf area Frequent nausea and vomiting Symptoms of depression or anxiety If you experience any of the following, call 911 or go to the nearest Emergency Room. Chest pain Problems breathing Seizure activity Partial or complete paralysis of a body part, slurred speech, weakness or drooping of the face, or a sudden inability to walk or hold your balance Allergies/Adverse Reactions: Allergies No Known Allergies Allergy (Verified 02/05/20 10:45) Medications to take at Discharge PNV 22-iron 27 mg iron-folic acid 1 mg-docusate 50 mg-dha 250 mg pack 1 tab PO QHS ea 07/03/19 levothyroxine 150 mcg tablet 150 mcg PO DAILY 09/27/19 Please Follow Up With: Nyla Thacker MD - [phone] When: Call to make an appointment with your doctor in 6 weeks. If you had elevated Blood pressure or 4th degree laceration you will need to be seen in 2 weeks. Primary Care Physician: Floyd Riley MD [Primary Care Provider] - Test Results: Test results from this visit will be discussed in further detail at your follow-up appointment, if applicable.
[2020-02-08] MEDS: 0.9% Saline Lock 10 ML Syringe IV (13:21)
[2020-02-08] MEDS: Acetaminophen 500 MG Tablet 1000 MG PO (18:26)
[2020-02-08] MEDS: oxyCODONE 5 MG Tablet PO (21:02)
--- NOTE | 2020-02-08 21:27 | NURSING ---
Pt ambulated in hallway from room 16 to room 9. Pt tolerated well.
[2020-02-09 01:05] VITALS: BP 95/47; PULSE 83; RESP 18; TEMP 36.8
[2020-02-09] MEDS: oxyCODONE 5 MG Tablet PO ×2 (01:10→05:33)
[2020-02-09] MEDS: Acetaminophen 500 MG Tablet 1000 MG PO ×2 (03:38→12:55)
[2020-02-09] MEDS: Levothyroxine 150 MCG Tablet PO (05:34)
[2020-02-09 05:35] VITALS: BP 96/46; PULSE 76; RESP 16; TEMP 36.7
--- NOTE | 2020-02-09 07:53 | PCM.PN.OB ---
Subjective: doing well no complaints pain controlled no CP SOB N V ambulating well tolerating po lochia moderate, going well - Physical Exam Vitals/I&O's: Vital Signs Temp Pulse Resp BP Pulse Ox 98.0 F 76 16 96/46 L 97 02/09/20 05:35 02/09/20 05:35 02/09/20 05:35 02/09/20 05:35 02/08/20 21:41 Oxygen Delivery Method Room Air Weight: 179 lb 14.355 oz Body Mass Index (BMI) 32.8 Intake and Output for Last 24 Hours 02/07/20 02/08/20 02/09/20 23:59 23:59 23:59 Intake Total 550.0 / 550.0 3840.40 / 3840.40 Output Total 450 / 450 2100 / 2100 Balance 100.0 / 100.0 1740.40 / 1740.40 Current Medications Acetaminophen (Tylenol) 1,000 mg PO Q8H PRN PRN PRN Reason: Pain Score 1-310 Last Admin: 02/09/20 03:38 Dose: 1,000 mg Documented by: Bisacodyl (Dulcolax) 10 mg RECTAL UD PRN PRN Reason: If no BM Dibucaine (Dibucaine) 1 applic TOPICAL TID PRN PRN; Protocol PRN Reason: Discomfort Hydrocortisone (Hytone) 1 applic TOPICAL TID PRN PRN; Protocol PRN Reason: Discomfort Levothyroxine Sodium (Synthroid) 150 mcg PO DAILY@0600 GUILLE Last Admin: 02/09/20 05:34 Dose: 150 mcg Documented by: Methylergonovine Maleate (Methergine) 0.2 mg IM X1 PRN PRN Reason: Excess bleeding/uterine atony Naproxen (Naprosyn) 500 mg PO Q8H PRN PRN PRN Reason: Pain Score 1-3/10 Last Admin: 02/08/20 12:22 Dose: 500 mg Documented by: Ondansetron HCl (Zofran) 4 mg IV Q4H PRN PRN PRN Reason: Nausea Oxycodone HCl (Oxyir) 5 - 10 mg PO Q4H PRN PRN PRN Reason: Pain Score 4-10/10 Last Admin: 02/09/20 05:33 Dose: 5 mg Documented by: Senna/Docusate Sodium (Senokot-S, Harmony-Colace) 1 - 2 tablet PO DAILY PRN PRN PRN Reason: Constipation Simethicone (Mylicon) 80 mg PO PCHS PRN PRN Reason: Indigestion/Stomach pain Sodium Chloride () 5 - 15 ml IV UD PRN PRN Reason: SALINE FLUSH Last Admin: 02/08/20 13:21 Dose: 10 ml Documented by: Medical Necessity - Tobacco Use Smoking Status: Never smoker Assessment/Plan All Active Problems (Last Reviewed 02/05/20 @ 10:44 by Lila Mckeon) (Acute) Supervision of other normal (Acute) Hypothyroidism (acquired) (Acute) Abnormal glucose tolerance test during , antepartum (Resolved) Asymptomatic bacteriuria during (Resolved) Bleeding in early (Resolved) Decreased movement (Resolved) Granulation tissue (Resolved) Impetigo (Resolved) Marginal placenta previa (Resolved) Supervision of normal (Resolved) Uterine size-date discrepancy in third trimester (Resolved) s/p PPD #1 1. routine post delivery care 2. breast feeding- support given 3. rh positive 4. rubella immune
[2020-02-09 08:00] VITALS: BP 98/64; PULSE 83; RESP 18; TEMP 36.4
[2020-02-09] MEDS: Naproxen 250 MG Tablet 500 MG PO (09:24)
[2020-02-09 12:30] VITALS: BP 98/62; PULSE 87; RESP 18; TEMP 36.7
== END 2020-02-09 14:40 | disposition home or self-care (01) | DRG 807 ==
PROVIDERS: Admitting Provider Obstetrics & Gynecology; Family Provider Family Medicine; PCP Family Medicine; Referring Provider Obstetrics & Gynecology; Visit Provider Obstetrics & Gynecology
DX: O48.0 Post-term pregnancy (principal); O70.1 Second degree perineal laceration during delivery; O99.284 Endocrine, nutritional and metabolic diseases complicating childbirth; E03.9 Hypothyroidism, unspecified; Z79.899 Other long term (current) drug therapy; Z3A.40 40 weeks gestation of pregnancy; Z37.0 Single live birth
CPT/HCPCS: 59025; 59050; 85025; 86850; 86900; 86901; 99218; J7120; A4216; G0378; J2405

== ENCOUNTER → 2020-02-11 18:53 | Outpatient (CLI) | payer SELFPAY ==
[2020-02-07 19:46] VITALS: BMI 32.8
== END ==
PROVIDERS: PCP Family Medicine; Referring Provider Obstetrics & Gynecology; Visit Provider Obstetrics & Gynecology
DX: O92.79 Other disorders of lactation (principal)
CPT/HCPCS: 96158

== ENCOUNTER → 2020-03-15 09:20 | Outpatient (CLI) | payer SELFPAY ==
[2020-02-16 10:13] VITALS: BMI 32.8
[2020-03-15 13:05] LABS: T4 Free Direct 1.68 ng/dL (0.76-1.46); Thyroid Stim Hormone (TSH) 0.12 uIU/mL (0.358-3.74)
== END ==
PROVIDERS: PCP Family Medicine; Referring Provider Family Medicine; Visit Provider Family Medicine
DX: E03.9 Hypothyroidism, unspecified (principal)
CPT/HCPCS: 36415; 84439; 84443

== ENCOUNTER → 2020-06-13 09:17 | Outpatient (CLI) | payer SELFPAY ==
[2020-03-26 08:36] VITALS: BMI 32.8
[2020-06-13 12:47] LABS: T4 Free Direct 1.42 ng/dL (0.76-1.46); Thyroid Stim Hormone (TSH) 0.26 uIU/mL (0.358-3.74)
== END ==
PROVIDERS: PCP Family Medicine; Referring Provider Family Medicine; Visit Provider Family Medicine
DX: E03.9 Hypothyroidism, unspecified (principal)
CPT/HCPCS: 36415; 84439; 84443

== ENCOUNTER → 2020-09-24 10:44 | Outpatient (CLI) | payer SELFPAY ==
[2020-03-26 08:36] VITALS: BMI 32.8
[2020-09-24 13:07] LABS: T4 Free Direct 1.33 ng/dL (0.76-1.46); Thyroid Stim Hormone (TSH) 0.92 uIU/mL (0.358-3.74)
== END ==
PROVIDERS: PCP Family Medicine; Referring Provider Family Medicine; Visit Provider Family Medicine
DX: E03.9 Hypothyroidism, unspecified (principal)
CPT/HCPCS: 36415; 84439; 84443

== ENCOUNTER → 2020-12-11 | Outpatient (CLI) | payer SELFPAY ==
[2020-12-11 09:19] VITALS: BMI 27.1
[2020-12-11 13:45] LABS: Amphetamine Urine VISTA NEGATIVE (<1000 ng/mL); Barbiturate Urine VISTA NEGATIVE (< 200 ng/mL); Benzodiazepine Urine VISTA NEGATIVE (< 200 ng/mL); Cocaine Urine VISTA NEGATIVE (< 300 ng/mL); Ecstacy Urine VISTA NEGATIVE (< 500 ng/mL); Methadone Urine VISTA NEGATIVE (< 300 ng/mL); PCP Urine VISTA NEGATIVE (< 25 ng/mL); THC Urine VISTA NEGATIVE (< 50 ng/mL); Vista UDS pH Range 6
[2020-12-14 03:07] LABS: Chlamydia By Nucleic Acid AMP Negative (Negative)
[2020-12-14 12:56] LABS: HPV Reflexed? NOT INDICATED
[2020-12-14 13:09] LABS: Gonococcus By Nucleic Acid AMP Negative (Negative)
== END | disposition home or self-care (01) ==
LOC: LABSPEC 12:50
PROVIDERS: PCP Family Medicine; Referring Provider Obstetrics & Gynecology; Visit Provider Obstetrics & Gynecology
DX: Z12.4 Encounter for screening for malignant neoplasm of cervix (principal); Z34.80 Encounter for supervision of other normal pregnancy, unspecified trimester
CPT/HCPCS: 80307; 87086; 87088; 87491; 87591; 88175; G0145

== ENCOUNTER → 2021-01-08 09:10 | Outpatient (CLI) | payer SELFPAY ==
[2021-01-08 08:56] VITALS: BMI 27.2
[2021-01-08 09:46] LABS: Absolute Lymphocyte Count 1.83 X10^3/uL (0.83-4.51); Absolute Neutrophil Count 4.7 X10^3/uL (2.0-7.7); Basophil# 0.04 X10^3/uL; Basophil% 0.6 % (0-1); Eosinophil# 0.15 X10^3/uL; Eosinophils% 2.1 % (0-5); Hematocrit 37.8 % (37-47); Hemoglobin 12.6 g/dL (12.0-15.0); Lymphocyte # 1.83 X10^3/ul (4.0); Lymphocyte % 25.8 % (19-41); Mean Corp Hgb Conc 33.3 g/dL (32-36); Mean Corpuscular Hgb 28.6 pg (27.0-32.0); Mean Corpuscular Volume 85.7 fL (81-99); Mean Platelet Vol. 9.9 fl (6.2-12.0); Monocyte# 0.38 X10^3/uL; Monocyte% 5.4 % (0-10); NRBC Flagged by Analyzer 0 % (0-5); Neutrophil # 4.65 X10^3/uL (2.7-7.7); Neutrophil % 65.7 % (47-70); Platelet Count 225 K/mm3 (150-450); RBC Distribution Width CV 14.4 % (11.6-14.6); RBC Distribution Width SD 44.4 fl (35.1-43.9); Red Blood Count 4.41 M/mm3 (4.2-5.4); White Blood Count 7.1 K/mm3 (4.4-11.0)
[2021-01-08 10:37] LABS: HIV - WCH Non-Reactive (Nonreactive); Hepatitis B Surface Antigen Non-Reactive (Nonreactive); Hepatitis C Antibody Non-Reactive (Nonreactive); Rubella IgG Reactive (Nonreactive); Syphilis Antibodies Non-reactive
== END ==
PROVIDERS: PCP Family Medicine; Referring Provider Obstetrics & Gynecology; Visit Provider Obstetrics & Gynecology
DX: Z34.80 Encounter for supervision of other normal pregnancy, unspecified trimester (principal); E03.9 Hypothyroidism, unspecified
CPT/HCPCS: 36415; 84443; 85025; 86703; 86762; 86780; 86803; 86850; 86900; 86901; 87340

== ENCOUNTER → 2021-01-09 13:45 | Outpatient (CLI) | payer SELFPAY ==
[2021-01-08 08:56] VITALS: BMI 27.2
[2021-01-09 14:24] LABS: T4 Free Direct 1.11 ng/dL (0.76-1.46)
== END ==
PROVIDERS: PCP Family Medicine; Referring Provider Family Medicine; Visit Provider Family Medicine
DX: E03.9 Hypothyroidism, unspecified (principal)
CPT/HCPCS: 84439

== ENCOUNTER → 2021-02-05 09:55 | Outpatient (CLI) | payer SELFPAY ==
[2021-02-05 09:38] VITALS: BMI 27.4
[2021-02-05 10:24] LABS: T4 Free Direct 1.21 ng/dL (0.76-1.46)
[2021-02-05 18:05] LABS: Xtra Tube EP Lab EXTRA TUBE
== END ==
PROVIDERS: PCP Family Medicine; Referring Provider Family Medicine; Visit Provider Family Medicine
DX: E03.9 Hypothyroidism, unspecified (principal)
CPT/HCPCS: 36415; 84439

== ENCOUNTER → 2021-02-10 08:23 | Outpatient (CLI) | payer SELFPAY ==
[2021-01-08 08:56] VITALS: BMI 27.2
[2021-02-05 09:38] VITALS: BMI 27.4
--- NOTE | 2021-02-10 08:30 | US_ITS ---
STUDY: SECOND AND THIRD TRIMESTER OBSTETRICAL ULTRASOUND REASON FOR EXAM: Female, 25 years old anatomy LMP: Patient is nursing. TECHNIQUE: Transabdominal and Transvaginal TECHNICAL QUALITY: Adequate. PRIOR ULTRASOUND: None. FINDINGS: There is a single intrauterine fetus. The fetus is in a cephalic presentation. There is demonstrated cardiac activity with a heart rate of 148 bpm. There is a normal amniotic fluid volume. The largest amniotic fluid pocket measures 3.2 cm. The amniotic fluid index (PHAM) is within normal limits. The placenta is posterior in location and is not low lying. There are Grade 0 placental changes. The cervix measures 3.4 cm in length. The bilateral adnexal regions are normal. BIOMETRY: BPD: 4 cm: 18 weeks, 1 days HC: 15.1 cm: 18 weeks, 1 days AC: 12.5 cm: 18 weeks, 0 days FL: 2.48 cm: 17 weeks, 3 days CI: 77% FL/BPD: 62% FL/HC: FL/AC: 20% HC/AC: 1.21 age by current US: 17 weeks, 5 days. ALBINA by current US: 07/16/2021. Estimated weight: 214 grams, +/- 30 grams, 5.1 %. Please correlate with her LMP. Age by LMP: 19 weeks, 0 days. ALBINA by LMP: 07/07/2021. ANATOMY: Gender: Female Cranium: Normal lateral ventricles. Normal choroid plexus. Normal cerebellum. Normal cisterna magna. Normal face, nose and lips. Chest: Normal 4-chamber heart. Abdomen/Pelvis: Normal diaphragm. Normal stomach. Normal abdominal wall. Normal cord insertion. Normal 3 vessel cord. Normal kidneys. Normal bladder. Spine: Normal cervical spine. Normal thoracic spine. Normal lumbar spine. Normal sacrum. Extremities: Normal bilateral upper extremities. Normal bilateral lower extremities. IMPRESSION: Single live uterine gestation with mean gestational age of 17 weeks and 5 days. Please correlate with the LMP. Electronically Signed: Efra Thapa MD at 10:59 EDT , Service support , STUDY: FIRST TRIMESTER OBSTETRICAL ULTRASOUND REASON FOR EXAM: Female, 25 years old anatomy TECHNIQUE: Transvaginal TECHNICAL QUALITY: Adequate. PRIOR ULTRASOUND: None. FINDINGS: The cervix measures 3.4 cm in length. US/OB Anatomy Scan IMPRESSION: The cervix measures 3.4 cm in length. Electronically Signed: Efra Thapa MD at 11:00 EDT , Service support ,
== END ==
PROVIDERS: PCP Family Medicine; Referring Provider Obstetrics & Gynecology; Visit Provider Obstetrics & Gynecology
DX: Z34.92 Encounter for supervision of normal pregnancy, unspecified, second trimester (principal); Z3A.17 17 weeks gestation of pregnancy
CPT/HCPCS: 76805; 76817

== ENCOUNTER → 2021-03-11 08:53 | Outpatient (CLI) | payer SELFPAY ==
[2021-03-03 09:07] VITALS: BMI 27.4
--- NOTE | 2021-03-11 09:01 | US_ITS ---
STUDY: SECOND AND THIRD TRIMESTER OBSTETRICAL ULTRASOUND - LIMITED REASON FOR EXAM: Female, 25 years old growth LMP: 10/14/2020. PRIOR ULTRASOUND: Comparison is made with prior study of 02/10/2021. TECHNIQUE: Transabdominal TECHNICAL QUALITY: Adequate. FINDINGS: There is a single intrauterine fetus. The fetus is in a cephalic presentation. There is demonstrated cardiac activity with a heart rate of 140 bpm. There is a normal amniotic fluid volume. The largest amniotic fluid pocket measures 3.8 cm x 6.3 cm. The amniotic fluid index (PHAM) is within normal limits. The placenta is posterior in location and is not low lying. There are Grade 0 placental changes. The cervix measures 5.1 cm in length. BIOMETRY: BPD: 5.29 cm: 22 weeks, 0 days HC: 19.57 cm: 21 weeks, 5 days AC: 17.37 cm: 22 weeks, 2 days FL: 3.7 cm: 21 weeks, 5 days Age by LMP: 23 weeks, 1 days. ALBINA by LMP: 07/07/2021. age by prior US: 21 weeks, 6 days. ALBINA by prior US: 07/16/2021. age by current US: 21 weeks, 5 days. ALBINA by current US: 07/17/2021. Estimated weight: 477 grams, +/- 71 grams, 8.6 percentile. US/OB Limited With Biometrics IMPRESSION: Single live intrauterine gestation with a mean gestational age of 21 weeks and 6 days. The measurements obtained today following the normal expected range. The weight is within the 8.6 percentile. Electronically Signed: fEra Thapa MD at 14:45 EDT , Service support ,
== END ==
PROVIDERS: PCP Family Medicine; Referring Provider Obstetrics & Gynecology; Visit Provider Obstetrics & Gynecology
DX: O36.5990 Maternal care for other known or suspected poor fetal growth, unspecified trimester, not applicable or unspecified (principal); Z3A.00 Weeks of gestation of pregnancy not specified
CPT/HCPCS: 76816

== ENCOUNTER → 2021-04-01 08:49 | Outpatient (CLI) | payer SELFPAY ==
[2021-03-03 09:07] VITALS: BMI 27.4
[2021-04-01 09:16] LABS: Absolute Lymphocyte Count 1.83 X10^3/uL (0.83-4.51); Absolute Neutrophil Count 6.9 X10^3/uL (2.0-7.7); Basophil# 0.04 X10^3/uL; Basophil% 0.4 % (0-1); Eosinophil# 0.16 X10^3/uL; Eosinophils% 1.7 % (0-5); Hematocrit 38.8 % (37-47); Hemoglobin 12.6 g/dL (12.0-15.0); Lymphocyte # 1.83 X10^3/ul (0.83-4.51); Lymphocyte % 19.4 % (19-41); Mean Corp Hgb Conc 32.5 g/dL (32-36); Mean Corpuscular Hgb 29.4 pg (27.0-32.0); Mean Corpuscular Volume 90.4 fL (81-99); Monocyte# 0.42 X10^3/uL; Monocyte% 4.5 % (0-10); NRBC Flagged by Analyzer 0 % (0-5); Neutrophil # 6.87 X10^3/uL (2.7-7.7); Neutrophil % 72.8 % (47-70); Platelet Count 179 K/mm3 (150-450); RBC Distribution Width CV 13.4 % (11.6-14.6); Red Blood Count 4.29 M/mm3 (4.2-5.4); White Blood Count 9.4 K/mm3 (4.4-11.0)
[2021-04-01 09:51] LABS: Glucose Challenge Gest 1H 50g 141 mg/dL (70-140)
== END ==
PROVIDERS: PCP Family Medicine; Referring Provider Obstetrics & Gynecology; Visit Provider Obstetrics & Gynecology
DX: Z34.80 Encounter for supervision of other normal pregnancy, unspecified trimester (principal)
CPT/HCPCS: 36415; 82950; 85025

== ENCOUNTER → 2021-04-02 06:56 | Outpatient (CLI) | payer SELFPAY ==
[2021-04-01 09:20] VITALS: BMI 27.4
[2021-04-02 07:39] LABS: Glucose GTT-Gestation. Fasting 89 mg/dL (<105)
[2021-04-02 08:53] LABS: Glucose GTT-Gestational 1 Hr 157 mg/dL (<190)
[2021-04-02 09:50] LABS: Glucose GTT-Gestational 2 Hr 141 mg/dL (<165)
[2021-04-02 11:05] LABS: Glucose GTT-Gestational 3 Hr 85 L (<145)
== END ==
PROVIDERS: PCP Family Medicine; Referring Provider Obstetrics & Gynecology; Visit Provider Obstetrics & Gynecology
DX: O99.810 Abnormal glucose complicating pregnancy (principal); Z3A.00 Weeks of gestation of pregnancy not specified
CPT/HCPCS: 36415; 82951; 82952

== ENCOUNTER → 2021-04-10 13:53 | Outpatient (CLI) | payer SELFPAY ==
[2021-04-01 09:20] VITALS: BMI 27.4
[2021-04-10 18:54] LABS: T4 Free Direct 1.04 ng/dL (0.76-1.46); Thyroid Stim Hormone (TSH) 4.92 uIU/mL (0.358-3.74)
== END ==
PROVIDERS: PCP Family Medicine; Visit Provider Family Medicine
DX: E03.9 Hypothyroidism, unspecified (principal)
CPT/HCPCS: 36415; 84439; 84443

== ENCOUNTER 2021-05-15 11:10 | Outpatient (CLI) | payer SELFPAY ==
[2021-05-14 09:06] VITALS: BMI 27.4
[2021-05-15 11:26] VITALS: BP 107/74; PULSE 89; TEMP 36.7
[2021-05-15 11:27] VITALS: BMI 30.9
[2021-05-15 12:40] LABS: Fetal Fibronectin Negative
--- NOTE | 2021-05-16 06:59 | OB.TRI.PN ---
Progress Notes Date of Service: 05/15/21 Progress Note: Patient presents for triage evaluation secondary to abdominal pain FHT: 140 moderate variability reactive no decelerations category I tracing [place]: Irregular contractions Assessment and plan: Abdominal pain in , FFM negative no significant dilation, sent to ER for evaluation of abdominal pain reactive NST, reassuring maternal and status patient discharged to home to follow-up as scheduled. See problem list details for additional plan information. Laboratory Studies: Laboratory Tests 05/15/21 Range/Units 12:00 Fibronectin Negative Charges/Coding Procedures Urinary/Genital [id number]: [id number] non-stress test Interp Assessment & Plan (1) Abdominal pain affecting : COMMENT: Evaluated 8 5 in triage and ER. FFM negative no labor. PLAN: To ER for evaluation
== END 2021-05-15 12:10 | disposition home or self-care (01) ==
LOC: WPOUT 11:18 → WP 11:18
PROVIDERS: PCP Family Medicine; Visit Provider Obstetrics & Gynecology
DX: O26.899 Other specified pregnancy related conditions, unspecified trimester (principal); R10.9 Unspecified abdominal pain; Z3A.00 Weeks of gestation of pregnancy not specified
CPT/HCPCS: 59025; 59050; 82731; 99218; G0378

== ENCOUNTER → 2021-05-30 10:03 | Outpatient (CLI) | payer SELFPAY | PROVIDERS: PCP Family Medicine; Referring Provider Obstetrics & Gynecology; Visit Provider Obstetrics & Gynecology | DX: E03.9 Hypothyroidism, unspecified (principal) | CPT/HCPCS: 36415; 84439; 84443 ==

== ENCOUNTER → 2021-06-11 11:17 | Outpatient (CLI) | payer SELFPAY | PROVIDERS: PCP Family Medicine; Visit Provider Obstetrics & Gynecology | DX: Z34.80 Encounter for supervision of other normal pregnancy, unspecified trimester (principal) | CPT/HCPCS: 87077; 87081; 87186 ==

== ENCOUNTER 2021-07-14 18:33 | Inpatient (IN) | payer SELFPAY ==
[2020-12-11 09:19] VITALS: BMI 27.1
[2021-05-30 10:56] LABS: T4 Free Direct 1.18 ng/dL (0.76-1.46); Thyroid Stim Hormone (TSH) 2.03 uIU/mL (0.358-3.74)
[2021-07-14] VITALS (10 sets, daily range): BP systolic 101–109; BP diastolic 57–63; PULSE 83–96; TEMP 36.7–36.9; O2SAT 97–98; BMI 31.1
[2021-07-14] MEDS: Lactated Ringers 1,000 ML 50 ML IV (19:30)
[2021-07-14 19:47] LABS: Absolute Lymphocyte Count 2.07 X10^3/uL (0.83-4.51); Absolute Neutrophil Count 7.9 X10^3/uL (2.0-7.7); Basophil# 0.02 X10^3/uL; Basophil% 0.2 % (0-1); Eosinophil# 0.08 X10^3/uL; Eosinophils% 0.8 % (0-5); Hematocrit 35.8 % (37-47); Hemoglobin 11.3 g/dL (12.0-15.0); Lymphocyte # 2.07 X10^3/ul (0.83-4.51); Lymphocyte % 19.4 % (19-41); Mean Corp Hgb Conc 31.6 g/dL (32-36); Mean Corpuscular Volume 82.3 fL (81-99); Mean Platelet Vol. 10.5 fl (6.2-12.0); Monocyte% 4.7 % (0-10); NRBC Flagged by Analyzer 0 % (0-5); Neutrophil # 7.88 X10^3/uL (2.7-7.7); Neutrophil % 73.9 % (47-70); Platelet Count 181 K/mm3 (150-450); RBC Distribution Width CV 14.1 % (11.6-14.6); RBC Distribution Width SD 41.7 fl (35.1-43.9); Red Blood Count 4.35 M/mm3 (4.2-5.4); White Blood Count 10.7 K/mm3 (4.4-11.0)
[2021-07-14] MEDS: Oxytocin 30 units/NS 500 ml 30 UNITS/500 ML IV.SOLN IV (20:11)
[2021-07-15] VITALS (81 sets, daily range): BP systolic 82–125; BP diastolic 48–79; PULSE 68–105; RESP 16–18; TEMP 35.9–37; O2SAT 96–100
[2021-07-15] MEDS: Mag Hydrox/Al Hydrox/Simeth 30 ML UDC PO (02:10)
[2021-07-15] MEDS: Lactated Ringers 500 ML 999 ML IV ×2 (02:16→04:35)
[2021-07-15] MEDS: Lactated Ringers 1,000 ML 200 ML IV (02:46)
[2021-07-15] MEDS: fentaNYL-bupivacaine (epidural) 100 ML BAG EPIDURAL (03:20)
[2021-07-15] MEDS: Penicillin G 3,000,000 Units 50 ML 100 UNITS IV ×2 (03:29→07:13)
[2021-07-15] MEDS: Ondansetron 4 MG/2 ML Vial IV (04:41)
--- NOTE | 2021-07-15 04:47 | HP.PCM.OB_ITS ---
HPI - General General Date of Admission: 07/14/21 HPI Narrative MARKO RIVERS, is a 25 F who presents for IOL postdates, she has had a complicated by hypothyroidism and initial growth abnormality but fu was WNL Maternal Data Information ALBINA Calculator Estimated Delivery Date Method Current WG Current Estimate 07/07/21 LMP (Certain) 41w 1d Other Estimates 07/12/21 Ultrasound #1 40w 3d PFSH PFSH Medical History (Updated 07/15/21 @ 04:[address] Nyla Thacker MD) History of tetanus, diphtheria, and acellular pertussis booster vaccination (Tdap) Hypothyroid Loss of consciousness Thyroid disorder Home Medications PNV 22-iron 27 mg iron-folic acid 1 mg-docusate 50 mg-dha 250 mg pack 1 tab PO QHS ea 07/03/19 [History Last Taken 05/14/21] levothyroxine 150 mcg capsule 150 mcg PO DAILY 04/16/21 [History Last Taken 07/14/21 150] Allergy/AdvReac Type Severity Reaction Status Date / Time No Known Allergies Allergy Verified 07/09/21 10:41 Family History Grandfather Heart disease Father Hypertension Surgical History S/P thyroid biopsy Social History adopted: No household members: family housing: house number of children: 2 current occupational exposures/hazards: No history of recent travel: No sexually active: Yes Smoking Status: Never smoker second hand exposure: No alcohol intake: never substance use type: does not use what type of physical activity do you participate in: none seatbelt use: always do you feel safe at home: Yes additional social history: Spouse Leigha History 3 Elective abortions Hx Para 2 Spontaneous abortions Hx # Term Pregnancies Ectopic pregnancies Hx # Pregnancies Multiple births # of living children 2 Past Pregnancies Del. Date Name GA/Weeks Outcome Route Bth Weight Gen Labor Lgth Anesthesia Del Locatn Provider FOB 04/22/18 Leobardo 39 live - full term 9lbs 12oz Male e pidural [facility] MELANIE 02/08/20 Rmo 40 live - full term [id number] Male epid ural [facility] Delivery Date: 04/22/18 Prolonged 2nd stage- [id number] pushing; 3rd degree laceration; midline episiotomy Chrissy Mcnamara Delivery Date: 02/08/20 IOL POST DATES, 2 DEGREE LACERATION Chrissy Mcnamara Visit Details Expected Delivery Route/Plan Labor Preferences- CB/BF classes: no labor support person: Leigha labor intervention preferences: [] pain management options preferred: epidural cut cord/dad catch: yes : yes PP control planned: condoms discussed possible routes of delivery and associated risks: [] special requests: [] Plans covid vaccine: non immune, counseled regarding risk of covid in vs vaccination and declined vaccination flu vaccine: no tdap vaccine: given rhogam: na LARC form signed: yes Problem list reviewed and updated with the most current plan of care details and appropriate orders placed. Relevant counseling for the gestational age provided. Continue routine care and follow up unless otherwise noted in visit notes/problem list details OB Flowsheet Initial Weight: Not Recorded Date -?-?-?-?-?-?-?-?-?-?-?-?- EGA Weight BP Urine Prot -?-?-?-?-?-?-?-?-?-?-?-?- Glucose FHR FuHt Pres Dilation -?-?-?-?-?-?-?-?-?-?-?-?- Effaced St Visit Note 12/11/20 -?-?-?-?-?-?-?-?-?-?-?-?- 10w 2d 148 lb 2 oz 110/80 -?-?-?-?-?-?-?-?-?-?-?-?- 168 -?-?-?-?-?-?-?-?-?-?-?-?- GP - CRL 24.6mm consistent with LMP. 01/08/21 -?-?-?-?-?-?-?-?-?-?-?-?- 14w 2d 149 lb 2 oz 108/72 -?-?-?-?-?-?-?-?-?-?-?-?- 150 -?-?-?-?-?-?-?-?-?-?-?-?- GP - no cramping or bleeding. Anatomy scan ordered. NOB labs being drawn today. 02/05/21 -?-?-?-?-?-?-?-?-?-?-?-?- 18w 2d 154 lb 94/66 Negative -?-?-?-?-?-?-?-?-?-?-?-?- Negative 145 -?-?-?-?-?-?-?-?-?-?-?-?- GP - no cramping or bleeding. Anatomy scan next week. 03/03/21 -?-?-?-?-?-?-?-?-?-?-?-?- 22w 0d 160 lb 110/62 Negative -?-?-?-?-?-?-?-?-?-?-?-?- Negative 145 -?-?-?-?-?-?-?-?-?-?-?-?- GP - no LOF, VB, DFM, ctx. Denies complaints. 04/01/21 -?-?-?-?-?-?-?-?-?-?-?-?- 26w 1d 104/58 Negative -?-?-?-?-?-?-?--?-?-?-?-?- Negative 140 26 -?-?-?-?-?-?-?-?-?-?-?-?- SM- no vb lof go od fm no reuglar ctx 04/16/21 -?-?-?-?-?-?-?-?-?-?-?-?- 28w 2d 170 lb 4 oz 98/62 -?-?-?-?-?-?-?-?-?-?-?-?- 148 28 -?-?-?-?-?-?-?-?-?-?-?-?- MH-NO VB, LOF. O cca BH CTX. nl cbc and 3 hr GTT. tdap, larc. 04/30/21 -?-?-?-?-?-?-?-?-?-?-?-?- 30w 2d 171 lb 102/76 Negative -?-?-?-?-?-?-?-?-?-?-?-?- Negative 150 30 Cephalic -?-?-?-?-?-?-?-?-?-?-?-?- GP - no ctx, LOF , VB, DFM, ctx. Reveiwed repeat anatomy scan - growth nl 05/14/21 -?-?-?-?-?-?-?-?-?-?-?-?- 32w 2d 172 lb 4 oz 98/70 Nega tive -?-?-?-?-?-?-?-?-?-?-?--?- Negative 145 32 Cephalic -?-?-?-?-?-?-?-?-?-?-?-?- GP - no LOF, VB, DFM, ctx. Denies complaints. Has a feeling that she is having a girl. 05/30/21 -?-?-?-?-?-?-?-?-?-?-?-?- 34w 4d 116/68 Negative -?-?-?-?-?-?-?-?-?-?-?-?- Negative 145 35 Cephalic -?-?-?-?-?-?-?-?-?-?-?-?- SM- no vb lof go od fm no regular ctx 06/11/21 -?-?-?-?-?-?-?-?-?-?-?-?- 36w 2d 173 lb 8 oz 110/74 Nega tive -?-?-?-?-?-?-?-?-?-?-?-?- Negative 130 36 Cephalic 1 -?-?-?-?-?-?-?-?-?-?-?-?- 40 -3 GP - no LO F, VB, DFM, ctx. GBS [place]. 06/20/21 -?-?-?-?-?-?-?-?-?-?-?-?- 37w 4d 177 lb 98/66 Negative -?-?-?-?-?-?-?-?-?-?-?-?- Negative 130 37 Cephalic 1 -?-?-?-?-?-?-?-?-?-?-?-?- -3 SM- no v b lof good fm nor egular ctx 06/27/21 -?-?-?-?-?-?-?-?-?-?-?-?- 38w 4d 176 lb 2 oz 114/84 Nega tive -?-?-?-?-?-?-?-?-?-?-?-?- Negative 145 38 Cephalic 2 -?-?-?-?-?-?-?-?-?-?-?-?- 50 -2 GP - no LO F, VB, DFM, regular ctx. Membranes swept 07/02/21 -?-?-?-?-?-?-?-?-?-?-?-?- 39w 2d 179 lb 2 oz 110/80 -?-?--?-?-?-?-?-?-?-?-?-?- 135 39 3 -?-?-?-?-?-?-?-?-?-?-?-?- 50 -2 MH-No VB, LOF. Good FM. Some irreg CTX. Membranes swept. 07/09/21 -?-?-?-?-?-?-?-?-?-?-?-?- 40w 2d 176 lb 2 oz 110/76 Nega tive -?-?-?-?-?-?-?-?-?-?-?-?- Negative 130 40 Cephalic 3 -?-?-?-?-?-?-?-?-?-?-?-?- 60 -2 SM- no vb lof good fm nor egular ctx plan IOL 41 07/14/21 -?-?-?-?-?-?-?-?-?-?-?-?- 41w 0d 170 lb 101/57 109/63 102/59 101/59 105/60 103/59 113/58 125/79 114/74 110/74 114/70 113/66 106/65 105/66 82/50 -?-?-?-?-?-?-?-?-?-?-?-?- -?-?-?-?-?-?-?-?-?-?-?-?- NST FHR Rate Baby A Baseline: 130 Variability:: Moderate Accelerations:: 15 x 15 Decelerations:: None NST Reactive:: Yes FHR Category:: Category I Uterine Activity:: irregular ROS Constitutional Constitutional: Reports systems reviewed and no addt'l complaints, except as documented Eyes Eyes: Denies change in vision ENT HEENT: Reports systems reviewed and no addt'l complaints, except as documented; Denies headache(s) Cardiovascular Cardiovascular: Reports systems reviewed and no addt'l complaints, except as documented; Denies chest pain or dyspnea Respiratory/Chest Respiratory/Chest: Reports systems reviewed and no addt'l complaints, except as documented Gastrointestinal Gastrointestinal: Reports systems reviewed and no addt'l complaints, except as documented; Denies abdominal pain Genitourinary Genitourinary: Reports systems reviewed and no addt'l complaints, except as documented, contractions Details: present (irregular) and movement Details: present; Denies dysuria or genital lesions Musculoskeletal Musculoskeletal: Reports systems reviewed and no addt'l complaints, except as documented Neurologic Neurologic: Reports systems reviewed and no addt'l complaints, except as documented Endocrine Endocrinology: Reports systems reviewed and no addt'l complaints, except as documented Vital Signs Vital Signs Vital Signs: 07/14/21 19:35 07/14/21 20:19 07/14/21 20:29 Temperature 98.1 F Temperature Source Temporal Pulse Rate 96 88 Blood Pressure 101/57 L 109/63 BP Systolic 101 109 BP Diastolic 57 63 Pulse Ox 07/14/21 20:30 07/14/21 20:35 07/14/21 21:53 Temperature 98.1 F Temperature Source Temporal Pulse Rate 94 92 Blood Pressure BP Systolic BP Diastolic Pulse Ox 97 98 98 07/14/21 21:54 07/14/21 22:57 07/14/21 23:46 Temperature 98.1 F 98.5 F Temperature Source Temporal Temporal Pulse Rate 86 83 Blood Pressure 102/59 L 101/59 L BP Systolic 102 101 BP Diastolic 59 59 Pulse Ox 98 07/14/21 23:47 07/15/21 01:14 07/15/21 01:56 Temperature 97.9 F 98.1 F Temperature Source Temporal Temporal Pulse Rate 86 83 Blood Pressure 105/60 103/59 L BP Systolic 105 103 BP Diastolic 60 59 Pulse Ox 07/15/21 01:57 07/15/21 02:50 07/15/21 02:51 Temperature 98.1 F Temperature Source Pulse Rate 85 82 Blood Pressure 113/58 L BP Systolic 113 BP Diastolic 58 Pulse Ox 98 07/15/21 03:00 07/15/21 03:05 07/15/21 03:10 Temperature Temperature Source Pulse Rate 94 100 103 H Blood Pressure BP Systolic BP Diastolic Pulse Ox 100 100 100 07/15/21 03:15 07/15/21 03:16 07/15/21 03:19 Temperature Temperature Source Pulse Rate 100 96 Blood Pressure 125/79 H 114/74 BP Systolic 125 114 BP Diastolic 79 74 Pulse Ox 100 07/15/21 03:20 07/15/21 03:25 07/15/21 03:30 Temperature Temperature Source Pulse Rate 97 99 89 Blood Pressure 110/74 114/70 BP Systolic 110 114 BP Diastolic 74 70 Pulse Ox 100 100 99 07/15/21 03:35 07/15/21 03:36 07/15/21 03:39 Temperature Temperature Source Pulse Rate 96 92 87 Blood Pressure 113/66 106/65 BP Systolic 113 106 BP Diastolic 66 65 Pulse Ox 99 07/15/21 03:40 07/15/21 03:42 07/15/21 03:44 Temperature 97.5 F L Temperature Source Temporal Pulse Rate 85 86 Blood Pressure 105/66 BP Systolic 105 BP Diastolic 66 Pulse Ox 100 07/15/21 04:25 07/15/21 04:26 07/15/21 04:31 Temperature 98.1 F Temperature Source Temporal Pulse Rate 79 89 Blood Pressure BP Systolic BP Diastolic Pulse Ox 100 99 Weight Weight: 170 lb Body Mass Index (BMI) 31.1 Physical Exam Const alert, oriented x3, no apparent distress and healthy appearing HEENT normocephalic and moist oral mucous membranes Head and Scalp: atraumatic Neck full ROM, no lymphadenopathy, supple and thyroid normal General: trachea midline Lymph Lymphatic: no lymphadenopathy noted Chest inspection of chest normal Resp normal respiratory effort Cardio regular rate GI normal to inspection, nondistended, normoactive bowel sounds, soft to palpation and non-tender Inspection: gravid external exam normal Manual OB Exam: estimated gestational size appropriate, presentation cephalic, dilated, effaced and station Extremity normal to inspection General Extremity: Negative for edema Skin no rashes or lesions noted Neuro no focal motor deficits and deep tendon reflexes 2+ bilaterally Motor Exam: strength 5/5 throughout and clonus absent Psych mental status grossly normal Labs Labs Labs: Blood Type A POSITIVE Antibody Screen NEGATIVE Hct 35.8 % (37-47) L Hgb 11.3 g/dL (12.0-15.0) L Obstetrics US Syphilis Total Ab Non-reactive Rubella IgG Antibody Reactive (Nonreactive) Hep Bs Antigen Non-Reactive (Nonreactive) Neisseria gonorrhoeae DNA (MADDI) Negative (Negative) HIV 1&2 Antibody Non-Reactive (Nonreactive) C.trachomatis DNA (PCR) Negative (Negative) Glucose 1 Hr 50 gm 141 mg/dL (70-140) H Group B Strep DNA Negative (Negative) Rhogam given: No Assessment & Plan (1) Positive GBS test: COMMENT: tx with PCN in labor (2) History of tetanus, diphtheria, and acellular pertussis booster vaccination (Tdap): COMMENT: 04/16/21 (3) Abnormal glucose affecting : COMMENT: 3 hr nl (4) Hypothyroidism (acquired): COMMENT: managed by Dr Riley- Levothyroxine 112mcg- Elevated TSH. medication changed to 137mcg- PCP to recheck levels in 2 weeks. (5) Vaginal granulation tissue: COMMENT: history of 3rd degree lac and 2nd degree lac, healed well, discussed vs LTCS for delivery, likely prefers . (6) : QUALIFIERS: Weeks of gestation: 40 weeks Qualified Code(s): Z3A.40 - 40 weeks gestation of COMMENT: declines genetic, carrier and NTD. anatomy nl - EFW 5%, 03/27/21 - nl anatomy efw 37% (7) Supervision of other normal : COMMENT: PRR ALBINA 07/07/21 [place]! PC: Rom Booth Spouse: Leigha (8) growth abnormality: COMMENT: Growth 5%ile on anatomy scan - growth US M 04/24 nl PLAN: Patient presents IOL, plan management for with pitocin/AROM. Pain management: plans epidural. GBS positive plan PCN Management of any complications: none I have reviewed the PFSH and made any clinically relevant updates.
--- NOTE | 2021-07-15 04:49 | PCM.PN.BLA ---
Progress Note s/p epi comfortable current tracing: FHT: 120 Moderate variability reactive isolated periodic variable deceleration category II tracing overall reassuring [place]: q 2-4 Contractions reviewed tracing abnormalities since last note: isolated variables A/P: continue pit per protocol, AROM clear fluid
[2021-07-15] MEDS: Oxytocin 30 units/NS 500 ml 30 UNITS/500 ML IV.SOLN 334 UNITS IV (07:42)
--- NOTE | 2021-07-15 09:03 | OP.PCM_ITS ---
Assessment & Plan (1) Vaginal delivery: COMMENT: IOL 41 SM girl Veronica (2) Positive GBS test: COMMENT: tx with PCN in labor (3) Abnormal glucose affecting : COMMENT: 3 hr nl (4) Supervision of other normal : COMMENT: PRR ALBINA 07/07/21 [place]! PC: Rom Booth Spouse: Leigha (5) : QUALIFIERS: Weeks of gestation: 40 weeks Qualified Code(s): Z3A.40 - 40 weeks gestation of COMMENT: declines genetic, carrier and NTD. anatomy nl - EFW 5%, 03/27/21 - nl anatomy efw 37% (6) Vaginal granulation tissue: COMMENT: history of 3rd degree lac and 2nd degree lac, healed well, discussed vs LTCS for delivery, likely prefers . (7) Hypothyroidism (acquired): COMMENT: managed by Dr Riley- Levothyroxine 112mcg- Elevated TSH. medication changed to 137mcg- PCP to recheck levels in 2 weeks. Maternal Data Information ALBINA Calculator Estimated Delivery Date Method Current WG Current Estimate 07/07/21 LMP (Certain) 41w 1d Other Estimates 07/12/21 Ultrasound #1 40w 3d Vaginal Delivery Maternal Presentation Maternal Presentation: Medically Indicated Induction Maternal Presentation: iol 41 Type of Induction: Pitocin Operative Information Date of Procedure: 07/15/21 Pre-Operative Diagnosis: IOL Post-Operative Diagnosis: same Surgery / Procedure Performed: Spontaneous Vaginal Delivery Type of Anesthesia: Epidural Special Medications: none Estimated Blood Loss: 100 Fluids Replaced: crystalloid Findings Description of Procedure: Patient began pushing and delivered the head in the EDISON presentation. The head was delivered atraumatically and a loose nuchal cord ?1 was identified and the infant delivered through without complication. The anterior and posterior shoulders delivered without complication followed by the rest of the and the was placed on the maternal abdomen. Delayed cord clamping was employed for approximately 60 seconds. Cord was clamped and cut and gentle traction was applied to the cord and the placenta delivered spontaneously immediately following it was noted to be intact with three-vessel cord. The perineum and vagina were inspected and notee to have a second degree repaired in the usual fashion with 3-0 rapide. EBL was 100 cc. Patient and tolerated delivery well. Presentation: EDISON Amniotic Membrane Rupture Type: Artificial Amniotic Fluid Description: Clear Placental Delivery Description: Spontaneous Placenta Disposition: [facility] Cord Vessel Description: 3 Vessels Cord Entanglement: Around neck x 1, loose A Gender: Female Delayed Cord Clamping: Yes Post Vaginal Delivery Medications Given After Delivery: IV Pitocin Episiotomy Description: None Laceration: Perineal Extension/lac and 2nd degree Complication Complications: None Procedures Urinary/Genital [id number]: [id number] Vaginal Delivery [facility]
--- NOTE | 2021-07-15 09:05 | PCM.DC ---
Discharge Instructions Diet Discharge Diet: No restrictions Activity Discharge Activity: Return to Normal Activity, May Not Drive (while taking narcotic pain medications.) and May Shower May resume sexual activity in: 4-6 weeks Dressing / Incision Call your doctor if your incision/area has: Continuous Slow Oozing, Sudden Increased Bleeding, Increased Pain/ Swelling, Increased Redness and Foul Smelling Discharge Follow Up Care Please Follow Up With: Nyla Thacker MD When: Call [phone] to make an appointment with your doctor in 6 weeks. If you had elevated blood pressure or 4th degree laceration, you will need to be seen in 2 weeks. Test Results: Test results from this visit will be discussed in further detail at your follow-up appointment, if applicable. Discharge Plan Admission Admit Date/Time: 07/14/21 18:33 Primary Reason for Your Visit: vaginal delivery Attending Provider: Nyla Thacker Primary Care Provider: Floyd Riley Discharge Orders/Prescriptions Prescriptions: No Action PNV 22-iron cb,gl 27 mg iron-folic acid 1 mg-dss 50 mg-dha 250 mg pack 27-1-50-250 mg combo pack 1 tab PO QHS RF: 0 levothyroxine 150 mcg capsule 150 mcg PO DAILY RF: 0 Referrals / Follow Up: Floyd Riley MD [Primary Care Provider] - Disposition Disposition (needs filled in before D/C Order can be placed): Home, Self Care
[2021-07-15] MEDS: Acetaminophen 500 MG Tablet 1000 MG PO ×2 (10:47→19:48)
[2021-07-15] MEDS: Levothyroxine 150 MCG Tablet PO (10:48)
--- NOTE | 2021-07-15 12:15 | NURSING ---
Epidural cath removed, tip intact. Pt tolerated well.
[2021-07-15] MEDS: Naproxen 500 MG Tablet PO (17:01)
[2021-07-16] MEDS: Naproxen 500 MG Tablet PO ×2 (01:50→10:11)
[2021-07-16 04:30] VITALS: BP 92/52; PULSE 86; RESP 16; TEMP 36.6; O2SAT 97
[2021-07-16] MEDS: Acetaminophen 500 MG Tablet 1000 MG PO (04:32)
[2021-07-16] MEDS: Levothyroxine 150 MCG Tablet PO (06:38)
--- NOTE | 2021-07-16 07:59 | PCM.PN.OB ---
Subjective Subjective Patient doing well without complaints. Tolerating PO. Ambulating and voiding without difficulty. Feeding well. Denies chest pain, shortness of breath, calf pain/swelling, fevers, chills, lightheadedness. Objective Data Objective Data Vital Signs: Vital Signs Temp Pulse Resp BP Pulse Ox 97.8 F 86 16 92/52 L 97 07/16/21 04:30 07/16/21 04:30 07/16/21 04:30 07/16/21 04:30 07/16/21 04:30 Oxygen Delivery Method Room Air Weight: 170 lb Body Mass Index (BMI) 31.1 Intake & Output: Intake and Output for Last 24 Hours 07/14/21 07/15/21 07/16/21 23:59 23:59 23:59 Intake Total 584.93 / 689.93 3883.54 / 3883.54 Output Total 850 / 850 3100 / 3100 Balance -265.07 / -160.07 783.54 / 783.54 Lab / Micro Data Result Diagrams: 07/14/21 19:30 Micro: Microbiology 07/14/21 19:35 Nasal Secretion SARS-CoV-2 Antigen (Rapid) - Final Physical Exam Const alert and oriented x3 HEENT normocephalic Eyes PERRL Neck full ROM Resp normal respiratory effort GI soft to palpation GI Narrative: FF below U Assessment & Plan (1) Vaginal delivery: COMMENT: IOL 41 SM girl Veronica PLAN: s/p PPD # 1 1. routine post delivery care 2. breast feeding- support given 3. rh positive 4. rubella immune 5. home today
[2021-07-16 08:09] VITALS: BP 95/65; PULSE 81; RESP 16; TEMP 36.8
== END 2021-07-16 12:15 | disposition home or self-care (01) | DRG 807 ==
PROVIDERS: Admitting Provider Obstetrics & Gynecology; PCP Family Medicine; Referring Provider Obstetrics & Gynecology; Visit Provider Obstetrics & Gynecology
DX: O48.0 Post-term pregnancy (principal); O70.1 Second degree perineal laceration during delivery; O76 Abnormality in fetal heart rate and rhythm complicating labor and delivery; O99.824 Streptococcus B carrier state complicating childbirth; O69.81X0 Labor and delivery complicated by cord around neck, without compression, not applicable or unspecified; O99.284 Endocrine, nutritional and metabolic diseases complicating childbirth; E03.9 Hypothyroidism, unspecified; Z20.822 Contact with and (suspected) exposure to COVID-19; Z79.890 Hormone replacement therapy; Z3A.41 41 weeks gestation of pregnancy; Z37.0 Single live birth
CPT/HCPCS: 59025; 59050; 85025; 86850; 86900; 86901; 87426; 99218; J7120; G0378; J2405

== ENCOUNTER → 2021-08-28 16:46 | Outpatient (CLI) | payer SELFPAY ==
[2021-08-28 18:22] LABS: T4 Free Direct 1.34 ng/dL (0.76-1.46); Thyroid Stim Hormone (TSH) 0.13 uIU/mL (0.358-3.74)
== END ==
PROVIDERS: PCP Family Medicine; Referring Provider Obstetrics & Gynecology; Visit Provider Family Medicine
DX: E07.9 Disorder of thyroid, unspecified (principal)
CPT/HCPCS: 36415; 84439; 84443

== ENCOUNTER 2022-01-06 11:25 | Outpatient (CLI) | payer SELFPAY ==
[2022-01-06 15:29] LABS: Absolute Neutrophil Count 3.6 X10^3/uL (2.0-7.7); Basophil# 0.05 X10^3/uL; Basophil% 0.8 % (0-1); Eosinophil# 0.18 X10^3/uL; Eosinophils% 2.8 % (0-5); Hematocrit 42.7 % (37-47); Hemoglobin 13.9 g/dL (12.0-15.0); Lymphocyte % 33.2 % (19-41); Mean Corp Hgb Conc 32.6 g/dL (32-36); Mean Corpuscular Hgb 26.6 pg (27.0-32.0); Mean Corpuscular Volume 81.8 fL (81-99); Mean Platelet Vol. 10.5 fl (6.2-12.0); Monocyte# 0.42 X10^3/uL; Monocyte% 6.6 % (0-10); NRBC Flagged by Analyzer 0 % (0-5); Neutrophil # 3.57 X10^3/uL (2.7-7.7); Neutrophil % 56.4 % (47-70); Platelet Count 235 K/mm3 (150-450); RBC Distribution Width CV 13.7 % (11.6-14.6); RBC Distribution Width SD 40.8 fl (35.1-43.9); Red Blood Count 5.22 M/mm3 (4.2-5.4); White Blood Count 6.3 K/mm3 (4.4-11.0)
[2022-01-06 15:49] LABS: ALB/GLOB Ratio 1.1 RATIO (0.9-2.4); AST(SGOT) 13 U/L (15-37); Alanine Aminotransfer ALT/SGPT 34 U/L (13-56); Albumin, Serum 4.1 g/dL (3.2-5.0); Alkaline Phosphatase 70 U/L (45-117); Anion Gap 3 (5-15); BUN 12 mg/dL (7-18); Calcium,Total 9.3 mg/dL (8.5-10.1); Chloride 108 mmol/L (98-107); EST Glomerular Filtration Rate 93 mL/min (>60); Est Glom Filt Rate - Afr Amer 112 mL/min (>60); Globulin 3.6 g/dL (2.2-4.2); Glucose 84 mg/dL (74-106); Potassium 4.1 mmol/L (3.5-5.1); Protein, Total 7.7 g/dL (6.4-8.2); Sodium Level 141 mmol/L (136-145); T4 Free Direct 1.42 ng/dL (0.76-1.46); Thyroid Stim Hormone (TSH) 0.06 uIU/mL (0.358-3.74)
== END 2022-01-06 23:59 | disposition home or self-care (01) ==
PROVIDERS: PCP Family Medicine; Referring Provider Family Medicine; Visit Provider Family Medicine
DX: E03.9 Hypothyroidism, unspecified (principal)
CPT/HCPCS: 36415; 80053; 84439; 84443; 85025

== ENCOUNTER → 2022-04-15 | Outpatient (CLI) | payer SELFPAY ==
[2022-04-15 15:56] LABS: T4 Free Direct 1.44 ng/dL (0.76-1.46); Thyroid Stim Hormone (TSH) 0.07 uIU/mL (0.358-3.74)
== END | disposition home or self-care (01) ==
PROVIDERS: PCP Family Medicine; Visit Provider Family Medicine
DX: E03.9 Hypothyroidism, unspecified (principal)
CPT/HCPCS: 36415; 84439; 84443

== ENCOUNTER → 2022-06-18 | Outpatient (CLI) | payer SELFPAY ==
--- NOTE | 2022-06-18 09:21 | US_ITS ---
STUDY: ULTRASOUND BREAST - LEFT REASON FOR EXAM: Female, 26 years old. Palpable lump left breast. TECHNIQUE: Axial and longitudinal images of the LEFT breast were performed with a high resolution ultrasound transducer. # OF IMAGES: 16 COMPARISON: Comparison is made with prior mammogram done earlier in the day. FINDINGS: LEFT Breast: There is a 1.4 cm x 1.2 cm x 1.1 cm hypoechoic slightly lobulated nodule at the 3 o''clock position of the breast for sinusitis or nipple. Adjacent to this, there is a 1 cm x 1.3 cm x 0.7 cm hypoechoic solid nodule. It is also evidence of a 9 mm x 9 mm x 8 mm solid nodule at the same location. US/Breast Limited Unilateral IMPRESSION: There are 3 adjacent hypoechoic solid nodules at the 3 o''clock position breast at 4 cm from nipple. The largest nodule measures 1.4 cm x 1.2 cm x 1.1 cm. Biopsy is recommended. ASSESSMENT CATEGORY: BIRADS Category 4: Suspicious - Biopsy Should Be Considered. A letter regarding these results will be sent to the patient by the facility within 30 days. Electronically Signed: Efra Thapa MD at 15:13 EDT ,
--- NOTE | 2022-06-18 09:21 | BI_ITS ---
MAMMOGRAPHY - BILATERAL DIAGNOSTIC REASON FOR EXAM: Female, 26 years old. Palpable lump in the upper lateral anterior aspect of the left breast. Patient stopped nursing recently. PERTINENT HISTORY: Grandmother with breast cancer. TECHNIQUE: Digital bilateral breast lydia (3D mammographic acquisition) in the CC and MLO projections. 2-D mediolateral oblique (MLO) and craniocaudad (CC) views of both breasts were obtained. CAD: Full Field Digital Mammography with Computer Added Detection was performed. COMPARISON: None. Baseline examination. FINDINGS: Breast Composition: The breasts are extremely dense, which lowers the sensitivity of mammography. There are no dominant masses or suspicious calcifications. No other significant abnormalities are identified. BI/DIAG MAMM W/CAD, BILAT IMPRESSION: Negative diagnostic mammogram. With the patient''s history of a palpable lump in the left breast, targeted breast ultrasound recommended. ASSESSMENT CATEGORY: BIRADS Category 0: Incomplete. Need additional imaging evaluation. A letter regarding these results will be sent to the patient by the facility within 30 days. Approximately 10% of breast cancers are not detected by mammography. A normal mammogram should not delay biopsy of a clinically suspicious abnormality. Electronically Signed: Efra Thapa MD at 10:35 EDT ,
== END | disposition home or self-care (01) ==
PROVIDERS: PCP Family Medicine; Visit Provider Obstetrics & Gynecology
DX: R92.2 Inconclusive mammogram (principal); N63.20 Unspecified lump in the left breast, unspecified quadrant
CPT/HCPCS: 76642; 77062; 77066; G0279

== ENCOUNTER 2022-06-26 06:05 | Day surgery (SDC) | payer SELFPAY ==
[2022-06-26] MEDS: Lactated Ringers 1,000 ML 15 ML IV (06:20)
[2022-06-26 06:32] LABS: Internal QC Validated? YES +Cl - CLEAR BKGD; Pregnancy, Urine Negative Negative
[2022-06-26 06:33] VITALS: BP 98/69; PULSE 70; RESP 16; TEMP 36.6; O2SAT 100; BMI 30.1
--- NOTE | 2022-06-26 06:45 | HP.PCM_ITS ---
History and Physical Date of Admission: 06/26/22 Intake Vital Signs ? 08/28/2116:07 06/22/2208:36 Height 5 ft 5 in 5 ft 2 in Weight: ? 167 lb 2 oz BMI ? 30.5 BP ? 104/75 Blood Pressure Location ? Lt brachial Position ? Sitting Respiration ? 15 Pulse ? 89 Pulse Source ? Monitor Pulse Oximetry (%) ? 99 Oxygen Delivery Method ? 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 History of tetanus, diphtheria, and acellular pertussis booster vaccination (Tdap) Hypothyroid Loss of consciousness Thyroid disorder Surgical History? S/P thyroid biopsy Family History? Grandfather?? Heart diseaseFather Hypertension Social History? adopted:? No household members:? family housing:? house number of children:? 2 current occupational exposures/hazards:? No history of recent travel:? No sexually active:? Yes Smoking Status:? Never smoker second hand exposure:? No alcohol intake:? never substance use type:? does not use what type of physical activity do you participate in:? none seatbelt use:? always do you feel safe at home:? Yes additional social history:? Spouse Leigha NGUYỄN HPI HPI: 26-year-old female with abnormal left breast imaging and a left breast mass.? Patient notes she has been feeling this since May.? She says that she has never had any breast biopsies and has no family history of breast cancer.? She does not report any nipple discharge.? No palpable masses on the opposite side. ROS General General: No weight change, appetite, fatigue, colon cancer, breast cancer or weakness HEENT HEENT: No difficulty swallowing, eye injury, eye surgery, swollen glands or hoarseness Endo Endocrine: Yes thyroid disease; No diabetes mellitus, thyroid cancer, Hair loss, heat intolerance or cold intolerance Skin Skin: No rash or changing moles Breast Breast: Yes left breast lump and abnormal US; No right breast lump, nipple discharge, breast pain, abnormal mammogram or breast enlargement Musc Musculoskeletal: No back problems, arthritis, rheumatoid arthritis, gout or joint pain Cardio Cardiovascular: No murmur, pacemaker, heart disease, atrial fibrillation, high blood pressure, heart attack, heart stent, palpitations, shortness of breat with exertion or chest pain Psych Psychiatric: No depression, anxiety or hearing voices Resp Respiratory: No shortness of breath, No sleep apnea, No cough, No COPD, No asthma, No emphysema and No wheezing Gastro Gastrointestinal: No abdominal pain, No nausea or vomiting, No diarrhea, No constipation, No blood in stool, No acid reflux, No hemorrhoids, No ulcers, No gallbladder problem and No black,tarry stools Dat Hematologic: No blood thinners, No blood disorders, No bleeding, No anemia and No blood clots Neuro Neurologic: No system reviewed and no additional complaints, except as docum ented, No as per HPI, No abnormal gait, No abnormal hearing, No abnormal movements, No abnormal speech, No behavioral changes, No burning sensations, No confusion, No convulsions, No disequilibrium, No dizziness, No localized weakness, No frequent falls, No headache(s), No lack of coordination, No loss of vision, No memory loss, No numbness, No other visual disturbances, No radicular pain, No restless legs, No sensory deficit, No syncope, No tingling, No tremor(s), No weakness and No other Exam Const General: cooperative Orientation: alert and oriented x3 HENMT Head: normal to inspection Neck Neck: normal visual inspection and full ROM Chest Chest palpation & inspection: normal inspection of the chest Breast Palpation: Yes breast mass lrb: Left Resp Effort & Inspection: normal respiratory effort Auscultation: clear to auscultation bilaterally Cardio Rate: regular rate Rhythm: regular rhythm GI Inspection: non-distended Palpation: soft and nontender Skin General: no rashes or lesions noted Neuro General: patient alert and patient oriented x3 Extrem General: full ROM Psych Appearance: grossly normal Mental Status: mental status grossly normal Assessment and Plan Assessment and Plan (1) Left breast mass: ?Status:?Acute ?Plan: Patient has a small left breast mass.? Ultrasound showed a BI-RADS 4 lesion and this is likely 3 small masses together.? I discussed biopsy versus excisional biopsy with her.? The patient elected for excisional biopsy of this left breast mass.? I discussed this with her in detail as well as the risk that this could be cancerous and require further surgery for margins and sentinel lymph node biopsy.? I also discussed the risks of bleeding and infection and seroma formation.? Patient understands the risks and would like excisional biopsy. Christiano Kelly MD Pager: [facility] [address] [place] [address], [address] [place] [address] Office: I have seen and reexamined the patient and there are no changes
[2022-06-26] MEDS: Bupivacaine 0.25% 30 ML Vial (06:58)
[2022-06-26] MEDS: Cefazolin 2 GM in 0.9% Normal Saline 100 ML IV (07:28)
--- NOTE | 2022-06-26 07:30 | BRBX_PTH ---
PATIENT: MARKO RIVERS LOC: [facility] U#:[id number] AGE/SX: 26/F ROOM: RE06/26/[address]: Dr. Christiano Kelly MD : 1995 BED: DIS: 06/26/2022 SPEC #: [id number] RECD: 06/26/22 09:43 STATUS: MICHELLE RESada #: [id number] DIPTI: 06/26/22 07:[address]: Christiano Kelly DEPT: SURGICAL PATHOLOGY RECD BY: Tiffani Prado ENTERED: 06/26/22 11:55 SP TYPE: BREAST BX OTHR DR: Dr. Floyd Riley MD Tissues: Left breast, NOS Procedures: Surgery Specimen Level IV HEADER OPERATION: Excisional biopsy of breast mass PRE-OP DIAGNOSIS: Left breast mass TISSUE SUBMITTED: Left breast mass MICROSCOPIC DIAGNOSIS Left breast mass, excision: Fibroadenoma. Fibrocystic change. AM:chris 06/29/2022 COMMENT Case has been reviewed in consultation with Dr. Luna who concurs with the above diagnosis. IDC:SJ MICROSCOPIC DESCRIPTION Slides are reviewed. GROSS DESCRIPTION Received in fixative is one container labeled with the patient's name and designated left breast mass. The specimen consists of a piece of fibroadipose tissue measuring 3.5 x 3 x 2 cm. No orientation is provided. The specimen is inked and serially sectioned to reveal a bilobed girard, indurated mass measuring 2 x 2.5 x 1 cm. The entire specimen is submitted in five cassettes from one end to another end. / MICKEY:chris 06/26/2022 TC:1 CPT: 18008
[2022-06-26 08:08] VITALS: BP 108/81; BP 98/69; PULSE 80; RESP 16; TEMP 36.2; O2SAT 99
--- NOTE | 2022-06-26 08:13 | PCM.OPRPT ---
Report of Operation Date of Procedure: 06/26/22 Pre-Operative Diagnosis: Left breast mass Post-Operative Diagnosis: Left breast mass Surgery/Procedure Performed:: Excisional biopsy of left breast mass Specimen's removed: Left breast mass Estimated Blood Loss (mL): 50 Description of Procedure: Patient was brought back the operating room and general anesthesia was induced. The left breast was prepped and draped in usual sterile fashion. The mass was palpable and the area overlying it was marked and then injected with local anesthetic. A skin incision was then made with a scalpel and electrocautery was used to dissect down to the mass. The mass was circumferentially dissected using electrocautery and sent for pathology. Hemostasis was obtained using electrocautery. The cavity was irrigated and suctioned dry. The cavity appeared dry with good hemostasis. The incision was closed with interrupted 3-0 Vicryl suture in a running 4-0 Monocryl suture. Dermabond glue was applied. Patient was awoken taken to PACU in stable condition. Admit VTE Documentation VTE Mechan Device Prophylaxis: SCD's
[2022-06-26 08:15] VITALS: BP 98/69; BP 98/72; PULSE 74; RESP 16; O2SAT 99
--- NOTE | 2022-06-26 08:19 | DCINST_ITS ---
Discharge Instructions Procedure Breast Surgery Diet Discharge Diet: No restrictions Activity Discharge Activity: May Not Drive (for 2-3 days or while taking narcotic pain medications.) May shower in (days): 1 Dressing / Incision Call your doctor if your incision/area has: Continuous Slow Oozing, Sudden Increased Bleeding, Increased Pain/ Swelling, Increased Redness, Foul Smelling Discharge and Swelling at the incision site Call your doctor if you observe: Fever of 101 or Higher Suture Line Care: Avoid Pulling/Pushing and Avoid Pinching/Bending Cleanse incision/area with: Soap & Water Additional Dressing/Incision Instructions:: Ibuprofen and Tylenol alternating with oxycodone for pain Follow Up Care Please Follow Up With: Christiano Kelly MD When: Please call to schedule 2 week follow up appointment. [phone] Test Results: Test results from this visit will be discussed in further detail at your follow- up appointment, if applicable. Discharge Plan Admission Attending Provider: Christiano Kelly Primary Care Provider: Floyd Riley Discharge Orders/Prescriptions Prescriptions: New oxycodone 5 mg tablet 5 - 10 mg PO Q6H PRN (Reason: pain) 5 Days Qty: 14 0RF No Action levothyroxine 150 mcg capsule 125 mcg PO DAILY Referrals / Follow Up: Floyd Riley MD [Primary Care Provider] - Disposition Disposition (needs filled in before D/C Order can be placed): Home, Self Care
[2022-06-26 08:30] VITALS: BP 97/68; BP 98/69; PULSE 85; RESP 16; O2SAT 100
[2022-06-26 08:45] VITALS: BP 100/76; BP 98/69; PULSE 79; RESP 16; TEMP 36.6; O2SAT 99
[2022-06-26] MEDS: oxyCODONE 5 MG Tablet 10 MG PO (09:11)
[2022-06-26 09:50] VITALS: BP 105/67; BP 98/69; PULSE 76; RESP 16; TEMP 36.7; O2SAT 99
== END 2022-06-26 10:09 | disposition home or self-care (01) ==
LOC: SDC 06:07 → AC 06:09
PROVIDERS: Anesthesiology; PCP Family Medicine; Referring Provider Surgery; Visit Provider Surgery
PROC: (CPT 19120; principal; 2022-06-26 07:15)
DX: D24.2 Benign neoplasm of left breast (principal); E03.9 Hypothyroidism, unspecified; Z79.890 Hormone replacement therapy
CPT/HCPCS: 19120; 00400; 81025; 88305; J7120; J2405

== ENCOUNTER → 2022-07-29 | Outpatient (CLI) | payer SELFPAY ==
[2022-07-29 12:49] LABS: Thyroid Stim Hormone (TSH) 0.22 uIU/mL (0.358-3.74)
== END | disposition home or self-care (01) ==
PROVIDERS: PCP Family Medicine; Referring Provider Family Medicine; Visit Provider Family Medicine
DX: E03.9 Hypothyroidism, unspecified (principal)
CPT/HCPCS: 36415; 84443

== ENCOUNTER → 2022-10-26 | Outpatient (CLI) | payer SELFPAY ==
[2022-10-26 12:48] LABS: ALB/GLOB Ratio 1.3 RATIO (0.9-2.4); AST(SGOT) 9 U/L (15-37); Alanine Aminotransfer ALT/SGPT 17 U/L (13-56); Albumin, Serum 4.1 g/dL (3.2-5.0); Alkaline Phosphatase 39 U/L (45-117); Anion Gap 7 (5-15); BUN 15 mg/dL (7-18); BUN/Creat Ratio 17.3 RATIO (10-20); Calcium,Total 8.8 mg/dL (8.5-10.1); Chloride 105 mmol/L (98-107); Creatinine, Serum 0.87 mg/dL (0.55-1.02); EST Glomerular Filtration Rate 84 mL/min (>60); Est Glom Filt Rate - Afr Amer 102 mL/min (>60); Globulin 3.1 g/dL (2.2-4.2); Glucose 99 mg/dL (74-106); Potassium 4.2 mmol/L (3.5-5.1); Protein, Total 7.2 g/dL (6.4-8.2); Sodium Level 138 mmol/L (136-145); T4 Free Direct 1.39 ng/dL (0.76-1.46); Thyroid Stim Hormone (TSH) 1.31 uIU/mL (0.358-3.74)
== END | disposition home or self-care (01) ==
PROVIDERS: PCP Family Medicine; Referring Provider Family Medicine; Visit Provider Family Medicine
DX: E03.9 Hypothyroidism, unspecified (principal)
CPT/HCPCS: 36415; 80053; 84439; 84443

== ENCOUNTER → 2023-04-27 | Outpatient (CLI) | payer SELFPAY ==
[2023-04-27 13:07] LABS: T4 Free Direct 1.24 ng/dL (0.76-1.46); Thyroid Stim Hormone (TSH) 5.86 uIU/mL (0.358-3.74)
== END | disposition home or self-care (01) ==
PROVIDERS: PCP Family Medicine; Referring Provider Family Medicine; Visit Provider Family Medicine
DX: E03.9 Hypothyroidism, unspecified (principal)
CPT/HCPCS: 36415; 84439; 84443

== ENCOUNTER → 2023-04-28 | Outpatient (CLI) | payer SELFPAY ==
[2023-04-28 12:39] LABS: Absolute Lymphocyte Count 1.91 X10^3/uL (0.83-4.51); Basophil# 0.05 X10^3/uL; Basophil% 0.9 % (0-1); Eosinophil# 0.19 X10^3/uL; Eosinophils% 3.5 % (0-5); Hematocrit 42.7 % (37-47); Hemoglobin 13.8 g/dL (12.0-15.0); Lymphocyte # 1.91 X10^3/ul (0.83-4.51); Lymphocyte % 35.1 % (19-41); Mean Corp Hgb Conc 32.3 g/dL (32-36); Mean Corpuscular Hgb 28.2 pg (27.0-32.0); Mean Corpuscular Volume 87.1 fL (81-99); Mean Platelet Vol. 10.4 fl (6.2-12.0); Monocyte# 0.25 X10^3/uL; Monocyte% 4.6 % (0-10); NRBC Flagged by Analyzer 0 % (0-5); Neutrophil # 3.03 X10^3/uL (2.7-7.7); Neutrophil % 55.7 % (47-70); Platelet Count 240 K/mm3 (150-450); RBC Distribution Width CV 13.7 % (11.6-14.6); RBC Distribution Width SD 43.6 fl (35.1-43.9); White Blood Count 5.4 K/mm3 (4.4-11.0)
[2023-04-28 13:05] LABS: ALB/GLOB Ratio 1.1 RATIO (0.9-2.4); AST(SGOT) 9 U/L (15-37); Alanine Aminotransfer ALT/SGPT 20 U/L (13-56); Alkaline Phosphatase 42 U/L (45-117); Anion Gap 6 (5-15); BUN 16 mg/dL (7-18); BUN/Creat Ratio 17.4 RATIO (10-20); Calcium,Total 8.9 mg/dL (8.5-10.1); Chloride 106 mmol/L (98-107); Creatinine, Serum 0.92 mg/dL (0.55-1.02); EST Glomerular Filtration Rate 78 mL/min (>60); Est Glom Filt Rate - Afr Amer 94 mL/min (>60); Globulin 3.5 g/dL (2.2-4.2); Glucose 82 mg/dL (74-106); Magnesium 2.6 mg/dL (1.6-2.6); Potassium 4.2 mmol/L (3.5-5.1); Protein, Total 7.5 g/dL (6.4-8.2); Sodium Level 140 mmol/L (136-145)
== END | disposition home or self-care (01) ==
LOC: MTLAB 09:34
PROVIDERS: PCP Family Medicine; Referring Provider Family Medicine; Visit Provider Family Medicine
DX: R00.2 Palpitations (principal)
CPT/HCPCS: 36415; 80053; 83735; 85025

== ENCOUNTER → 2023-10-13 | Outpatient (CLI) | payer SELFPAY ==
--- OUTSIDE RECORDS SUMMARY | 2023-10-13 17:20 | XMS RPT_ITS | CCD ---
Author Name Unknown Address [address] [facility] [address] [place] [address] Organization [facility] Care Team Providers Care Research Laboratory Technician Name Role Phone Unavailable Primary Care Provider Unavailabl e Medications Completed/Discontinued Medications Medication Drug Class(es) Dates Sig (Normalized) Sig (Original) levothyroxine sodium 0.112 mg oral tablet (1 source) l-Thyroxine Start: 10-29-2022 take 1 tablet by mouth once daily levothyroxine (SYNTHROID) 112 mcg tablet Take 112 mcg by mouth once daily. 0 10/29/2022 Active Problems Problem Classification Problem Date Documented Da te Episodic/Chronic Other upper respiratory infections (1 source) Sore throat symptom; Translations: [Acute pharyngitis, unspecified] Episodic Results Test Name Value Interpretation Reference Range Facil ity Vital Signs Date Time Vital Sign Value Performing Clinician Hal yates 01-19-2023 17:03-0400 Body temperature 99.61 [degF] Lisa Holman APRN.BRANCH RENTAL MANAGER Work Phone: [facility] 01-19-2023 17:03-0400 Body weight 73.3 kg Lisa Holman APRN.BRANCH RENTAL MANAGER Work Phone: [facility] 01-19-2023 17:03-0400 Diastolic blood pressure 68 mm[Hg] Lisa Costa-Alec MAT INSPECTOR.BRANCH RENTAL MANAGER Work Phone: [facility] 01-19-2023 17:03-0400 Heart rate 124 /min Lisa Holman MAT INSPECTOR.BRANCH RENTAL MANAGER Work Phone: [facility] 01-19-2023 17:03-0400 Respiratory rate 18 /min Lisacarlee Schaeferler-Alec MAT INSPECTOR.BRANCH RENTAL MANAGER Work Phone: [facility] 01-19-2023 17:03-0400 SaO2% (BldA) [Mass fraction] 99 % Lisa Holman APRN.CNP Work Phone: [facility] 01-19-2023 17:03-0400 Systolic blood pressure 122 mm[Hg] Lisa Holman APRN.CNP Work Phone: [facility] Encounters Encounter Date Encounter Type Care Provider Facility Start: 01-19-2023 End: 01-19-2023 ambulatory Facility:[facility] Start: 01-19-2023 End: 01-19-2023 Patient encounter procedure Lisa Holman APRN.CNP Work Phone: [facility] Procedures Date Procedure Procedure Detail Performing Clinician Start: 01-19-2023 STREP A MOLECULAR (POC) [facility] Provider Plan of Treatment Date Care Activity Detail Author Start: 06-11-2023 Influenza vaccination INFLUENZ A (Season Ended) [facility] Start: 10-11-2022 DEPRESSION ASSESSMENT DEPRESSION ASS ESSMENT [facility] Start: 2017 PAP TESTING PAP TESTING [facility] Start: 12-18-2015 Urine microalbumin profile DTAP,TDAP,TD (1 - Tdap) [facility] Start: 2014 HEPATITIS C SCREENING HEPATITIS C SC KANIKA [facility] Start: 2014 HIV SCREENING HIV SCREENING [facility] Start: 2010 PEDS TO ADULT TRANSI TION ANNUAL ASSESSMENT PEDS TO ADULT TRANSITION ANNUAL ASSESSMENT [facility] Start: 2008 PEDS TO ADULT TRANSI TION INITIAL DISCUSSION PEDS TO ADULT TRANSITION INITIAL DISCUSSION [facility] Start: 12-18-2007 HPV VACCINE (1 - 2-d ose series) HPV VACCINE (1 - 2-dose series) [facility] Start: 06-19-1997 COVID-19 VACCINE (#1) COVID-19 VACCI NE (#1) [facility] Start: 1996 HEPATITIS B (1 of 3 - 3-dose series) HEPATITIS B (1 of 3 - 3-dose series) [facility] UA DIP, URINE (POC) UA DIP, URIN E (POC) Lab Routine Sore throat Ordered: 01/19/[address] [facility] Work Phone: Social History Date Type Detail Facility Start: 01-19-2023 Tobacco smoking stat us NHIS Never smoked tobacco [facility] Start: 01-19-2023 Tobacco use and exposure Smoke less tobacco non-user [facility] Start: 1996 Sex Assigned At Not on file [facility] Progress note 01-19-2023 Note Date & Type Note Facility 01-19-2023 Note HNO ID: [id number] Author: Lisa Holman APRN.BRANCH RENTAL MANAGER Service: ? Author Type: Nurse Practitioner Type: Progress Notes Filed: 01/19/2023 5:30 PM Note Text: Subjective HPI Ravindra Rose is a 27 year old female who presents with sore throat, fever, headache for the past 2 days. She was exposed to strep in a niece over the weekend. She has been taking tylenol at home. She has a son who is sick today also with fever and vomiting. Review of Systems Constitutional: Positive for fever. HENT: Positive for sore throat. Negative for congestion and ear pain. Respiratory: Negative. Cardiovascular: Negative. Gastrointestinal: Negative for diarrhea, nausea and vomiting. Musculoskeletal: Negative. Neurological: Positive for headaches. BP 122/68 Pulse (!) 124 Temp 37.6 ?C (99.6 ?F) (Tympanic) Resp 18 Wt 73.3 kg (161 lb 9.6 oz) LMP 01/01/2023 SpO2 99% No past medical history on file. No past surgical history on file. ALLERGIES Patient has no allergy information on record. MEDICATIONS levothyroxine (SYNTHROID) 112 mcg tablet Take 112 mcg by mouth once daily. No family history on file. Social History Tobacco Use Smoking status: Never Smokeless tobacco: Never Substance Use Topics Drug use: Never Objective Physical Exam Vitals and nursing note reviewed. Constitutional: General: She is not in acute distress. Appearance: Normal appearance. She is not toxic-appearing. HENT: Right Ear: Tympanic membrane, ear canal and external ear normal. Left Ear: Tympanic membrane, ear canal and external ear normal. Nose: Nose normal. Mouth/Throat: Mouth: Mucous membranes are moist. Pharynx: Uvula midline. Posterior oropharyngeal erythema present. No oropharyngeal exudate. Cardiovascular: Rate and Rhythm: Regular rhythm. Tachycardia present. Heart sounds: Normal heart sounds. Pulmonary: Effort: Pulmonary effort is normal. No respiratory distress. Breath sounds: Normal breath sounds. No wheezing or rales. Musculoskeletal: Cervical back: Neck supple. Lymphadenopathy: Cervical: Cervical adenopathy present. Skin: General: Skin is warm and dry. Findings: No erythema or rash. Neurological: Mental Status: She is alert. ASSESSMENT/PLAN: 1. Sore throat - ICD9: 462, ICD10: J02.9 - suspect viral - Alere Strep Test negative, no culture pending - Discussed supportive care treatment with fluids, rest and analgesia. - UA DIP, URINE (POC) - Follow-up with your PCP in 3-5 days if symptoms have not improved or sooner if symptoms worsen - Discussed red flags and need for immediate medical evaluation if any occur. - Discussed supportive care treatment with fluids, rest and analgesia. - Discussed expected course of illness Lisa Holman APRN.[facility] History of Present illness Narrative 01-19-2023 Lisa Holman APRN.SONI - 01/19/2023 5:28 PM EDT Note Date & Type Note Facility 01-19-2023 History of Presen t illness Narrative Subjective HPI Ravindra Rose is a 27 year old female who presents with sore throat, fever, headache for the past 2 days. She was exposed to strep in a niece over the weekend. She has been taking tylenol at home. She has a son who is sick today also with fever and vomiting. Review of Systems Constitutional: Positive for fever. HENT: Positive for sore throat. Negative for congestion and ear pain. Respiratory: Negative. Cardiovascular: Negative. Gastrointestinal: Negative for diarrhea, nausea and vomiting. Musculoskeletal: Negative. Neurological: Positive for headaches. BP 122/68 Pulse (!) 124 Temp 37.6 C (99.6 F) (Tympanic) Resp 18 Wt 73.3 kg (161 lb 9.6 oz) LMP 01/01/2023 SpO2 99% No past medical history on file. No past surgical history on file. ALLERGIES Patient has no allergy information on record. MEDICATIONS levothyroxine (SYNTHROID) 112 mcg tablet Take 112 mcg by mouth once daily. No family history on file. Social History Tobacco Use Smoking status: Never Smokeless tobacco: Never Substance Use Topics Drug use: Never Objective Physical Exam Vitals and nursing note reviewed. Constitutional: General: She is not in acute distress. Appearance: Normal appearance. She is not toxic-appearing. HENT: Right Ear: Tympanic membrane, ear canal and external ear normal. Left Ear: Tympanic membrane, ear canal and external ear normal. Nose: Nose normal. Mouth/Throat: Mouth: Mucous membranes are moist. Pharynx: Uvula midline. Posterior oropharyngeal erythema present. No oropharyngeal exudate. Cardiovascular: Rate and Rhythm: Regular rhythm. Tachycardia present. Heart sounds: Normal heart sounds. Pulmonary: Effort: Pulmonary effort is normal. No respiratory distress. Breath sounds: Normal breath sounds. No wheezing or rales. Musculoskeletal: Cervical back: Neck supple. Lymphadenopathy: Cervical: Cervical adenopathy present. Skin: General: Skin is warm and dry. Findings: No erythema or rash. Neurological: Mental Status: She is alert. ASSESSMENT/PLAN: 1. Sore throat - ICD9: 462, ICD10: J02.9 - suspect viral - Alere Strep Test negative, no culture pending - Discussed supportive care treatment with fluids, rest and analgesia. - UA DIP, URINE (POC) - Follow-up with your PCP in 3-5 days if symptoms have not improved or sooner if symptoms worsen - Discussed red flags and need for immediate medical evaluation if any occur. - Discussed supportive care treatment with fluids, rest and analgesia. - Discussed expected course of illness Lisa Holman APRN.CNP documented in this encounter [facility] Instructions 01-19-2023 Patient Instructions Note Date & Type Note Facility 01-19-2023 Instructions Lisa Holman APRN.CNP - 01/19/2023 5:24 PM EDT ASSESSMENT/PLAN: 1. Sore throat - ICD9: 462, ICD10: J02.9 - suspect viral - Alere Strep Test negative, no culture pending - Discussed supportive care treatment with fluids, rest and analgesia. - UA DIP, URINE (POC) - Follow-up with your PCP in 3-5 days if symptoms have not improved or sooner if symptoms worsen - Discussed red flags and need for immediate medical evaluation if any occur. - Discussed supportive care treatment with fluids, rest and analgesia. - Discussed expected course of illness Lisa Holman APRN.BRANCH RENTAL MANAGER SORE THROAT INSTRUCTIONS SORE THROAT OVERVIEW - Sore throat is a common problem during childhood, and is usually the result of a bacterial or viral infection. Although sore throat usually resolves without complications, it sometimes requires treatment with an antibiotic. There are some less common causes of sore throat that are serious or even life-threatening. This topic will discuss the most common causes and treatments of sore throat in children, as well as the warning signs of more serious conditions. SORE THROAT CAUSES - The most likely cause of a child's sore throat depends upon the child's age, the season, and the geographic area. While viruses are the most common cause of sore throat, bacteria are another common cause. Bacteria and viruses are spread from one person to another through hand contact. Hands get contaminated when the sick individual touches their nose or mouth and then touches another person directly (yxae-qo-qulp contact) or indirectly (hbxo-gn-jldvtq, such as doorknob, telephone, toys). It is difficult to determine the cause of sore throat based upon symptoms alone; an examination and laboratory test are recommended in most cases Viruses - There are many viruses that can cause pain and swelling of the throat. The most common include viruses that cause sore throat as part of an upper respiratory infection, such as the common cold. Other viruses that cause sore throat include influenza, adenovirus, and Bj-Riddle virus (the cause of mononucleosis). Symptoms - Symptoms that may occur with a viral infection can include a runny nose and congestion, irritation or redness of the eyes, cough, hoarseness, soreness in the roof of the mouth, a skin rash, or diarrhea. In addition, children with viral infections may have a fever and may feel miserable. A high fever does not necessarily mean that the child has a bacterial infection. Group A streptococcus - Group A streptococcus (GAS) is the name of the bacterium that causes strep throat. Although other bacteria can cause a sore throat, GAS is the most common bacterial cause; up to 30 percent of children with a sore throat will have GAS. Strep throat usually occurs during the winter and early spring, and is most common in school-age children and their younger siblings. Symptoms - Symptoms of strep throat in children older than 3 years often develop suddenly and include fever (temperature ?100.4 F or 38 C), headache, abdominal pain, nausea, and vomiting. Other symptoms can include swollen glands in the neck, white patches of pus in the back or sides of the throat, small red spots on the roof of the mouth, and swelling of the uvula. A cough and cold are not commonly seen in children with strep throat. Strep throat is uncommon in children younger than age 2 to 3 years. However, GAS infection can occur in younger children, and may cause a runny nose and congestion that is prolonged, low-grade fever (?101 F or 38.3 C), and tender glands in the neck. Infants younger than 1 year may be fussy and have a decreased appetite and low-grade fever. SORE THROAT TREATMENT - The treatment of sore throat depends upon the cause; strep throat is treated with an antibiotic while viral pharyngitis is treated with rest, pain relievers, and other measures to reduce symptoms. Strep throat - Strep throat is usually treated with an antibiotic, such as penicillin, or an antibiotic similar to penicillin (eg, amoxicillin). Children who are allergic to penicillin will be given an alternate antibiotic. The antibiotic is usually given in pill or liquid form two or three times per day. A one-time injection is also available, and may be recommended if a child is unwilling to take an oral medication. After completing 24 hours of antibiotics, the child is no longer contagious and may return to school. Symptoms usually improve within 1 to 2 days. However, it is important for the child to finish the entire course of treatment (usually 10 days). If a child does not begin to improve or worsens within 3 days, the child should be reevaluated. Throat pain can be treated with a non-prescription pain medication, if needed. (See 'Pain medications' below.) In addition, parents should monitor their child for dehydration, which can develop if the child is not willing to drink or eat due to a sore throat. (See 'Monitor for dehydration' below.) Viral throat pain - Sore throat caused by viral infections usually last 4 to 5 days. During this time, treatments to reduce pain may be helpful but will not help to eliminate the virus. Antibiotics do not improve throat pain caused by a virus and are not recommended. A child with a viral infection is usually allowed to return to school when there has been no fever for 24 hours and the child feels well enough to pay attention. Pain medications - Throat pain can be treated with a mild pain reliever such as acetaminophen (Tylenol ) or a non-steroidal anti-inflammatory agent such as ibuprofen (Motrin ). These medications should be dosed according to weight, not age. Aspirin is not recommended for children <18 years due to the risk of a potentially serious condition known as De syndrome. Monitor for dehydration - Some children with a sore throat are reluctant to drink or eat due to pain. Drinking less fluid can lead to dehydration. To reduce the risk of dehydration, parents can offer warm or cold liquids. (See 'Other interventions' below.) Signs and symptoms of mild dehydration include a slightly dry mouth, increased thirst, and decreased urine output (one wet diaper or void in six hours). Signs of moderate or severe dehydration include decreased urine output (less than one wet diaper or void in six hours), lack of tears when crying, dry mouth, and sunken eyes. A child who is moderately or severely dehydrated should be evaluated by a healthcare provider as soon as possible to determine if treatment is needed. Oral rinses- Salt-water gargles are an old stand-by for relief of throat pain. It is not clear if this treatment is effective, but it is unlikely to be harmful. Most recipes suggest 1/4 to 1/2 teaspoon of salt per cup (8 ounces) of warm water. The water should be gargled and then spit out (not swallowed). Children younger than six to eight years are not able to gargle properly. An oral rinse composed of equal parts of diphenhydramine (Benadryl liquid) and Maalox (magnesium hydroxide, aluminum hydroxide, and simethicone) may be helpful for pain caused by a sore mouth or ulcers in the mouth. Children older than six to eight years may swish and spit (not swallow) the mixture. Sprays - Sprays containing topical anesthetics are available to treat sore throat. However, such sprays are no more effective than sucking on hard candy. In addition, a common anesthetic ingredient, benzocaine, can cause allergic reactions. We do not recommend throat sprays for children. Lozenges - A variety of medicated throat lozenges are available to relieve dryness or pain. However, it is not clear that lozenges work any better than hard candy. We do not recommend throat lozenges for children, especially children younger than 3 to 4 years, who can choke. Sucking on hard candy may provide some relief for children older than 3 to 4 years, who are not at risk for choking. Other interventions - Other interventions include sipping warm beverages (eg, honey or lemon tea, chicken soup), cold beverages, or eating cold or frozen desserts (eg, ice cream, popsicles). These treatments are safe for children. Honey should not be given to children younger than 12 months due to the potential risk of botulism poisoning. Alternative therapies - [place] food stores, vitamin outlets, and Internet Web sites offer alternative treatments for relief of sore throat pain. We do not recommend these treatments due to the risks of contamination with pesticides/herbicides, inaccurate labeling and dosing information, and a lack of studies showing that these treatments are safe and effective. SORE THROAT PREVENTION - Hand washing is an essential and highly effective way to prevent the spread of infection. Hands should be wet with water and plain soap, and rubbed together for 15 to 30 seconds. Special attention should be paid to the fingernails, between the fingers, and the wrists. Hands should be rinsed thoroughly, and dried with a single use towel. Alcohol-based hand rubs are a good alternative for disinfecting hands if a sink is not available. Hand rubs should be spread over the entire surface of hands, fingers, and wrists until dry, and may be used several times. These rubs can be used repeatedly without skin irritation or loss of effectiveness. Hand rubs are available as a liquid or wipe in small, portable sizes that are easy to carry in a pocket or handbag. When a sink is available, visibly soiled hands should be washed with soap and water. Hands should be washed after coughing, blowing the nose or sneezing. While it is not always possible to limit contact with a person who is sick, avoiding touching the eyes, nose, or mouth after direct contact can help to prevent the spread of infection. In addition, tissues should be used to cover the mouth when sneezing or coughing. These used tissues should be disposed of promptly. Sneezing/coughing into the sleeve of one's clothing (at the inner elbow) is another means of containing sprays of saliva and secretions and has the advantage of not contaminating the hands. WHEN TO SEEK HELP - Parents of a child with throat pain and one or more of the following should contact their healthcare provider immediately: Difficulty swallowing or breathing Excessive drooling in an infant or young child Temperature ?101 F or 38.3 C Swelling of the neck Child is unable or unwilling to drink or eat Voice sounds muffled Child has a stiff neck or difficulty opening the mouth WHERE TO GET MORE INFORMATION - Your child's healthcare provider is the best source of information for questions and concerns related to your child's medical problem. This article will be updated as needed every four months on our web site ([email or web address]). Information below was obtained from Up to date Last literature review version 19.2: February 2011 This topic last updated: May 28, 2010 documented in this encounter [facility] Evaluation note Note Date & Type Note Facility documented in this encounter [facility] Summary Purpose Family History No Family History Records Found Advance Directives No Advanced Directives Records Found Additional Source Comments Source Comments (unrecognize d section and content) In the event this informatio n is protected by the Federal Confidentiality of Alcohol and Drug Abuse Patient Records regulations: The Federal rules restrict any use of the information to criminally investigate or prosecute any alcohol or drug abuse patient.[facility] Reason for Visit (unrecogniz ed section and content) INFORMATION SOURCE (unrecogn ized section and content) FOR RECORDS PERTAINING TO PATIENTS WHO ARE OR HAVE BEEN ENROLLED IN A CHEMICAL DEPENDENCY/SUBSTANCEABUSE PROGRAM, SOME INFORMATION MAY BE OMITTED. This clinical summary was aggregated from multiple sources. Caution should be exercised in using it in the provision of clinical care. This summary normalizes information from multiple sources, and as a consequence, information in this document may materially change the coding, format and clinical context of patient data. In addition, data may be omitted in some cases. CLINICAL DECISIONS SHOULD BE BASED ON THE PRIMARY CLINICAL RECORDS. [facility] [employer] [facility]. provides no warranty or guarantee of the accuracy or completeness of information in this document.
[2023-10-18 18:25] LABS: HPV Reflexed? NOT INDICATED
== END | disposition home or self-care (01) ==
PROVIDERS: PCP Family Medicine; Visit Provider Registered Nurse
DX: Z12.4 Encounter for screening for malignant neoplasm of cervix (principal)
CPT/HCPCS: 88175; G0145

== ENCOUNTER → 2023-10-22 | Outpatient (CLI) | payer SELFPAY ==
--- OUTSIDE RECORDS SUMMARY | 2023-10-22 10:27 | XMS RPT_ITS | CCD ---
Author Name Unknown Address [address] [facility] [address] [place] [address] Organization [facility] Care Team Providers Care Manager Psychology Name Role Phone Unavailable Primary Care Provider [...] 17:03-0400 Body temperature 99.61 [degF] Lisa Holman APRN.BRONZE CHASER Work Phone: [facility] 01-19-2023 17:03-0400 Body weight 73.3 kg Lisa Holman APRN.BRONZE CHASER Work Phone: [facility] 01-19-2023 17:03-0400 Diastolic blood pressure 68 mm[Hg] Lisa Costa-Alec TAKER AWAY.BRONZE CHASER Work Phone: [facility] 01-19-2023 17:03-0400 Heart rate 124 /min Lisa Holman TAKER AWAY.BRONZE CHASER Work Phone: [facility] 01-19-2023 17:03-0400 Respiratory rate 18 /min Lisacarlee Schaeferler-Alec TAKER AWAY.BRONZE CHASER Work Phone: [facility] 01-19-2023 17:03-0400 SaO2% (BldA) [Mass fraction] 99 % Lisa Holman APRN.CNP Work Phone: [facility] 01-19-2023 17:03-0400 Systolic blood pressure 122 mm[Hg] Lisa Holman APRN.CNP Work Phone: [facility] Encounters Encounter Date Encounter Type Care Provider Facility Start: 01-19-2023 End: 01-19-2023 ambulatory Facility:[facility] Start: 01-19-2023 End: 01-19-2023 Patient encounter procedure Lisa Holman APRN.CNP Work Phone: [facility] Procedures Date Procedure Procedure Detail Performing Clinician Start: 01-19-2023 STREP A MOLECULAR (POC) [facility] Provider Plan of Treatment Date Care Activity Detail Author Start: 06-11-2023 Influenza vaccination INFLUENZ A (Season Ended) [facility] Start: 10-11-2022 DEPRESSION ASSESSMENT DEPRESSION ASS ESSMENT [facility] Start: 2017 PAP TESTING PAP TESTING [facility] Start: 12-18-2015 Urine microalbumin profile DTAP,TDAP,TD (1 - Tdap) [facility] Start: 2014 HEPATITIS C SCREENING HEPATITIS C SC KANIKA [facility] Start: 2014 HIV SCREENING HIV SCREENING [facility] Start: 2010 PEDS TO ADULT TRANSI TION ANNUAL ASSESSMENT PEDS TO ADULT TRANSITION ANNUAL ASSESSMENT [facility] Start: 2008 PEDS TO ADULT TRANSI TION INITIAL DISCUSSION PEDS TO ADULT TRANSITION INITIAL DISCUSSION [facility] Start: 12-18-2007 HPV VACCINE (1 - 2-d ose series) HPV VACCINE (1 - 2-dose series) [facility] Start: 06-19-1997 COVID-19 VACCINE (#1) COVID-19 VACCI NE (#1) [facility] Start: 1996 HEPATITIS B (1 of 3 - 3-dose series) HEPATITIS B (1 of 3 - 3-dose series) [facility] UA DIP, URINE (POC) UA DIP, URIN E (POC) Lab Routine Sore throat Ordered: 01/19/2023 [facility] Work Phone: Social History Date Type Detail Facility Start: 01-19-2023 Tobacco smoking stat us NHIS Never smoked tobacco [facility] Start: 01-19-2023 Tobacco use and exposure Smoke less tobacco non-user [facility] Start: 1996 Sex Assigned At Not on file C [facility] Progress note 01-19-2023 Note Date & Type Note Facility 01-19-2023 Note HNO ID: [id number] Author: Lisa Holman APRN.BRONZE CHASER Service: ? Author Type: Nurse Practitioner Type: [...] expected course of illness Lisa Holman APRN.SONI [facility] History of Present illness Narrative 01-19-2023 [...] Lisa Holman APRN.CNP documented in this encounter [facility] Instructions 01-19-2023 Patient Instructions Note Date [...] Discussed expected course of illness Lisa Holman APRN.BRONZE CHASER SORE THROAT INSTRUCTIONS SORE THROAT OVERVIEW - [...] mouth and then touches another person directly (hcde-et-xpxn contact) or indirectly (prhp-vq-zhxghg, such as doorknob, telephone, toys). It is [...] risk of botulism poisoning. Alternative therapies - [employer] food stores, vitamin outlets, and Internet Web [...] every four months on our web site ([email or web address]). Information below was obtained from Up to date Last literature review version 19.2: February 2011 This topic last updated: May 28, 2010 documented in this encounter [facility] Evaluation note Note Date & Type Note Facility documented in this encounter [facility] Summary Purpose Family History No Family History [...] or prosecute any alcohol or drug abuse patient.[facility] Reason for Visit (unrecogniz ed section and [...] BE BASED ON THE PRIMARY CLINICAL RECORDS. [facility]. provides no warranty or guarantee of the accuracy or completeness of information in this document.
[2023-10-22 13:04] LABS: T4 Free Direct 1.16 ng/dL (0.76-1.46); Thyroid Stim Hormone (TSH) 5.72 uIU/mL (0.358-3.74)
== END | disposition home or self-care (01) ==
LOC: MTLAB 09:51
PROVIDERS: PCP Family Medicine; Referring Provider Family Medicine; Visit Provider Family Medicine
DX: E03.9 Hypothyroidism, unspecified (principal)
CPT/HCPCS: 36415; 84439; 84443

== ENCOUNTER → 2024-01-24 | Outpatient (CLI) | payer SELFPAY ==
[2024-01-24 12:44] LABS: Absolute Lymphocyte Count 1.59 X10^3/uL (0.83-4.51); Absolute Neutrophil Count 4.3 X10^3/uL (2.0-7.7); Basophil# 0.03 X10^3/uL; Basophil% 0.5 % (0-1); Eosinophil# 0.06 X10^3/uL; Hematocrit 40.2 % (37-47); Hemoglobin 13.3 g/dL (12.0-15.0); Lymphocyte # 1.59 X10^3/ul (0.83-4.51); Lymphocyte % 25.2 % (19-41); Mean Corp Hgb Conc 33.1 g/dL (32-36); Mean Corpuscular Hgb 28.2 pg (27.0-32.0); Mean Corpuscular Volume 85.2 fL (81-99); Mean Platelet Vol. 10.4 fl (6.2-12.0); Monocyte# 0.31 X10^3/uL; Monocyte% 4.9 % (0-10); NRBC Flagged by Analyzer 0 % (0-5); Neutrophil % 68.1 % (47-70); Platelet Count 203 K/mm3 (150-450); RBC Distribution Width CV 13.3 % (11.6-14.6); RBC Distribution Width SD 41.1 fl (35.1-43.9); Red Blood Count 4.72 M/mm3 (4.2-5.4); White Blood Count 6.3 K/mm3 (4.4-11.0)
[2024-01-24 13:51] LABS: HIV - WCH Non-Reactive (Nonreactive); Hepatitis B Surface Antigen Non-Reactive (Nonreactive); Hepatitis C Antibody Non-Reactive (Nonreactive); Rubella IgG Reactive (Nonreactive); Syphilis Antibodies Non-reactive
== END | disposition home or self-care (01) ==
LOC: MTLAB 10:34
PROVIDERS: Registered Nurse; PCP Family Medicine; Referring Provider Family Medicine; Visit Provider Family Medicine
DX: O99.280 Endocrine, nutritional and metabolic diseases complicating pregnancy, unspecified trimester (principal); E03.9 Hypothyroidism, unspecified; Z3A.00 Weeks of gestation of pregnancy not specified
CPT/HCPCS: 36415; 84439; 84443; 85025; 86703; 86762; 86780; 86803; 86850; 86900; 86901; 87340

== ENCOUNTER → 2024-01-26 | Outpatient (CLI) | payer SELFPAY ==
[2024-01-29 08:13] LABS: Chlamydia By Nucleic Acid AMP Negative (Negative); Gonococcus By Nucleic Acid AMP Negative (Negative)
== END | disposition home or self-care (01) ==
PROVIDERS: PCP Family Medicine; Referring Provider Registered Nurse; Visit Provider Registered Nurse
DX: Z34.90 Encounter for supervision of normal pregnancy, unspecified, unspecified trimester (principal); Z3A.00 Weeks of gestation of pregnancy not specified
CPT/HCPCS: 87086; 87491; 87591

== ENCOUNTER → 2024-02-21 | Outpatient (CLI) | payer SELFPAY ==
[2024-02-21 12:50] LABS: T4 Free Direct 0.97 ng/dL (0.76-1.46); Thyroid Stim Hormone (TSH) 8.71 uIU/mL (0.358-3.74)
== END | disposition home or self-care (01) ==
LOC: MTLAB 10:00
PROVIDERS: PCP Family Medicine; Referring Provider Family Medicine; Visit Provider Family Medicine
DX: E03.9 Hypothyroidism, unspecified (principal)
CPT/HCPCS: 36415; 84439; 84443

== ENCOUNTER → 2024-03-21 | Outpatient (CLI) | payer SELFPAY ==
[2024-03-21 14:11] LABS: T4 Free Direct 1.11 ng/dL (0.76-1.46)
== END | disposition home or self-care (01) ==
LOC: MTLAB 10:17
PROVIDERS: PCP Family Medicine; Referring Provider Family Medicine; Visit Provider Family Medicine
DX: E03.9 Hypothyroidism, unspecified (principal)
CPT/HCPCS: 36415; 84439; 84443

== ENCOUNTER → 2024-06-01 | Outpatient (CLI) | payer SELFPAY ==
[2024-06-01 10:26] LABS: Absolute Lymphocyte Count 1.56 X10^3/uL (0.83-4.51); Absolute Neutrophil Count 6.6 X10^3/uL (2.0-7.7); Basophil# 0.04 X10^3/uL; Basophil% 0.5 % (0-1); Eosinophil# 0.11 X10^3/uL; Eosinophils% 1.2 % (0-5); Hemoglobin 12.8 g/dL (12.0-15.0); Lymphocyte # 1.56 X10^3/ul (0.83-4.51); Lymphocyte % 17.6 % (19-41); Mean Corpuscular Hgb 28.9 pg (27.0-32.0); Mean Corpuscular Volume 90.3 fL (81-99); Mean Platelet Vol. 10.3 fl (6.2-12.0); Monocyte# 0.39 X10^3/uL; Monocyte% 4.4 % (0-10); NRBC Flagged by Analyzer 0 % (0-5); Neutrophil # 6.62 X10^3/uL (2.7-7.7); Neutrophil % 74.7 % (47-70); Platelet Count 189 K/mm3 (150-450); RBC Distribution Width CV 13.2 % (11.6-14.6); RBC Distribution Width SD 43.7 fl (35.1-43.9); Red Blood Count 4.43 M/mm3 (4.2-5.4); White Blood Count 8.9 K/mm3 (4.4-11.0)
[2024-06-01 11:02] LABS: Glucose Challenge Gest 1H 50g 130 mg/dL (70-140)
[2024-06-01 11:15] LABS: T4 Free Direct 1.14 ng/dL (0.76-1.46)
[2024-06-01 11:21] LABS: HIV - WCH Non-Reactive (Nonreactive); Syphilis Antibodies Non-reactive
== END | disposition home or self-care (01) ==
LOC: LAB 09:44
PROVIDERS: Obstetrics & Gynecology; PCP Family Medicine; Referring Provider Obstetrics & Gynecology; Visit Provider Obstetrics & Gynecology
DX: Z34.90 Encounter for supervision of normal pregnancy, unspecified, unspecified trimester (principal); Z13.1 Encounter for screening for diabetes mellitus; O99.280 Endocrine, nutritional and metabolic diseases complicating pregnancy, unspecified trimester; E03.9 Hypothyroidism, unspecified
CPT/HCPCS: 36415; 82950; 84439; 84443; 85025; 86703; 86780

== ENCOUNTER → 2024-08-10 | Outpatient (CLI) | payer SELFPAY | END | disposition home or self-care (01) | LOC: LABSPEC 11:54 | PROVIDERS: PCP Family Medicine; Referring Provider Obstetrics & Gynecology; Visit Provider Obstetrics & Gynecology | DX: Z34.83 Encounter for supervision of other normal pregnancy, third trimester (principal); Z3A.00 Weeks of gestation of pregnancy not specified | CPT/HCPCS: 87081 ==

== ENCOUNTER 2024-08-29 07:24 | Inpatient (IN) | payer SELFPAY ==
[2024-08-29] VITALS (50 sets, daily range): BP systolic 89–133; BP diastolic 55–88; PULSE 77–114; RESP 15–18; TEMP 36.6–37.1; O2SAT 97–100; BMI 35.4
[2024-08-29] MEDS: Lactated Ringers 1,000 ML 50 ML IV ×3 (07:50→16:07)
[2024-08-29] MEDS: Oxytocin 15 Units/NS 250ml 15 UNITS/250 ML IV.SOLN 2 UNITS IV (08:00)
--- NOTE | 2024-08-29 08:00 | HP.PCM.OB_ITS ---
HPI - General General Date of Admission: 08/29/24 HPI Narrative MARKO RIVERS, is a 28 y/o @ 39 weeks 0 days F who presents to L&D for induction of labor for LGA and multip with a favorable cervix. Her has been uncomplicated with exception of a circumvallate placenta. She has a history of passing out during the pushing phase of labor and during the immediate period. Maternal Data Information ALBINA Calculator Estimated Delivery Date Method Current WG Current Estimate 09/05/24 LMP (Certain) 39w 0d PFSH PFSH Medical History Left breast mass Ingrown nail of great toe of right foot Paronychia of great toe, right Fibroadenoma of left breast Non-smoker Thyroid disorder History of tetanus, diphtheria, and acellular pertussis booster vaccination (Tdap) Loss of consciousness Hypothyroid Home Medications ?Medication ?Instructions ?Recorded ?Last Taken ?Type docosahexaenoic acid 200 mg 200 mg PO DAILY 01/07/24 08/28/24 19:23 History capsule ( DHA) levothyroxine 150 mcg capsule 200 mcg PO DAILY hypothyroidism 04/17/24 08/29/24 06:23 History Allergy/AdvReac Type Severity Reaction Status Date / Time No Known Allergies Allergy Verified 08/29/24 07:21 Family History Grandfather Heart disease Father Hypertension Son Diabetes, Onset Age: 2 Surgical History [place] teeth removed History of excision of mass S/P thyroid biopsy Social History adopted: No household members: spouse and children housing: house number of children: 3 current occupational status: unemployed 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 current occupational exposures/hazards: No pets and animals: Yes pets and animals: dog(s) history of recent travel: No sexually active: Yes Smoking Status: Never smoker second hand exposure: No alcohol intake: never details: not while substance use type: does not use diet: Weight Watchers well-balanced diet: daily or most days caffeine: Yes Type: coffee eating out: rarely or never during the past year weight has: remained stable what type of physical activity do you participate in: bicycling frequency: 3-4 times per week duration: 30-45 minutes/day chemo/confucianism: L[employer] Day seatbelt use: always do you feel safe at home: Yes additional social history: : Leigha Turner History 4 Elective abortions Hx Para 3 Spontaneous abortions Hx # Term Pregnancies Ectopic pregnancies Hx # Pregnancies Multiple births # of living children 3 Past Pregnancies Del. Date Name GA/Weeks Outcome Route Bth Weight Gen Labor Lgth Anesthesia Del Locatn Provider FOB 04/22/18 Booth 39 live - full term 9lbs 12oz Male e pidural [facility] MELANIE 02/08/20 Rom 40 live - full term 4pte1es Male epid ural [facility] MEL[facility]IE 07/15/21 Veronica 41 live - full term 8lbs 5oz Female ep idural [facility] M[facility]IE Delivery Date: 04/22/18 Last Updated by: Chrissy Mcnamara Prolonged 2nd stage- [id number] pushing; 3rd degree laceration; midline episiotomy Delivery Date: 02/08/20 Last Updated by: Chrissy Mcnamara IOL POST DATES, 2 DEGREE LACERATION Delivery Date: 07/15/21 Last Updated by: Chrissy Mcnamara Perineal Extension/lac and 2nd degree Visit Details Expected Delivery Route/Plan Labor Preferences- CB/BF classes: [] labor support person: [] labor intervention preferences: [] pain management options preferred: [] cut cord/dad catch: [] : [] PP control planned: [] discussed possible routes of delivery and associated risks: [] special requests: [] Plans Covid status: [] Flu vaccine: declines Tdap vaccine: declines Rhogam: na LARC form signed: yes movement and labor precautions reviewed. Problem list reviewed and updated with the most current plan of care details and appropriate orders placed. Relevant counseling for the gestational age provided. Continue routine care and follow up unless otherwise noted in visit notes/problem list details OB Flowsheet Initial Weight: 159 lb Date -?-?-?-?-?-?-?-?-?-?-?-?- EGA Weight BP Urine Prot -?-?-?-?-?-?-?-?-?-?-?-?- Glucose FHR FuHt Pres Dilation -?-?-?-?-?-?-?-?-?-?-?-?- Effaced St Visit Note 01/26/24 -?-?-?-?-?-?-?-?-?-?-?-?- 8w 1d 159 lb 6 oz (+6 oz) 108/77 -?-?-?-?-?-?-?-?-?-?-?-?- 168 -?-?-?-?-?-?-?-?-?-?-?-?- LC- CRL not con with LMP. LC- con with LMP. LC-CRL con with LMP. LC-CRL con with LMP. declin es nipt 02/23/24 -?-?-?-?-?-?-?-?-?-?-?-?- 12w 1d 165 lb 4 oz (+6 lb 4 oz) 107/75 Negative -?-?-?-?-?-?-?-?-?-?-?-?- Negative 150 -?-?-?-?-?-?-?-?-?-?-?-?- JV- suspect [facility] previa on scan. pt does have some pink discharge with sex. plan to avoid sex for now until anatomy scan. 03/22/24 -?-?-?-?-?-?-?-?-?-?-?-?- 16w 1d 169 lb (+10 lb) 117/78 Negative -?-?-?-?-?-?-?-?-?-?-?-?- Negative 149 -?-?-?-?-?-?-?-?-?-?-?-?- JV- having some round ligament pain. has us scheduled for 04/07. C/o bleeding painful gums. note to see dentist given. 04/17/24 -?-?-?-?-?-?-?-?-?-?-?-?- 19w 6d 172 lb 6 oz (+13 lb 6 oz) 100/67 Trace -?-?-?-?-?-?-?-?-?-?-?-?- Negative 142 -?-?-?-?-?-?-?-?-?-?-?-?- KW- no vb/crampi ng. good fm. anatomy scan reviewed. 05/15/24 -?-?-?-?-?-?-?-?-?-?-?-?- 23w 6d 178 lb 6 oz (+19 lb 6 oz) 99/66 Negative -?-?-?-?-?-?-?-?-?-?-?-?- Negative 140 25 -?-?-?-?-?-?-?-?-?-?-?-?- JV- no lof, vagi na lbleeding or dec fm. has varicocities that are bothering her. we discussed some remedies. glucola ordered. 06/01/24 -?-?-?-?-?-?-?-?-?-?-?-?- 26w 2d 179 lb (+20 lb) 98/66 Negative -?-?-?-?-?-?-?-?-?-?-?-?- Negative 140 27 -?-?-?-?-?-?-?-?-?-?-?-?- SM- no vb lof go od fm nor egular ctx cbc gct today 06/13/24 -?-?-?-?-?-?-?-?-?-?-?-?- 28w 0d 178 lb (+19 lb) 102/69 Negative -?-?-?-?-?-?-?-?-?-?-?-?- Negative 150 28 -?-?-?-?-?-?-?-?-?-?-?-?- JV- no lof, vagi nal bleeding, or dec fm. needs growth scans scheduled. is willing to go to [facility]. Does not want [facility] scans 06/29/24 -?-?-?-?-?-?-?-?-?-?-?-?- 30w 2d 183 lb 4 oz (+24 lb 4 oz) 95/59 Negative -?-?-?-?-?-?-?-?-?-?-?-?- Negative 136 30 -?-?-?-?-?-?-?-?-?-?-?-?- JV- no lof, vagi nal bleeding, or dec fm. normal growth scan, has another one for34 weeks and then 38 as needed. declines flu shot 07/11/24 -?-?-?--?-?-?-?-?-?-?-?-?- 32w 0d 187 lb 6 oz (+28 lb 6 oz) 98/62 Negative -?-?-?-?-?-?-?-?-?-?-?-?- Negative 137 32 -?-?-?-?-?-?-?-?-?-?-?-?- MH-NoVb, LOF. Go od FM. Growth US 07/2407/27/24 -?-?-?-?-?-?-?-?-?-?-?-?- 34w 2d 189 lb (+30 lb) 97/56 Negative -?-?--?-?-?-?-?-?-?-?-?-?- Negative 130 37 -?-?-?-?-?-?-?-?-?-?-?-?- KW-no vb/lof/ctx . good fm. had growth us. KW-no vb/lof/ctx. good fm. h ad growth us with MFM on 07/24. EFW 70% 08/10/24 -?-?-?-?-?-?-?-?-?-?-?-?- 36w 2d 189 lb (+30 lb) 100/67 Negative -?-?-?-?-?-?-?-?-?-?-?-?- Negative 130 38 Cephalic 1 -?-?-?-?-?-?-?-?-?-?-?-?- SM- no vb lof go od fm no regular ctx gbs done 08/15/24 -?-?-?-?-?-?-?-?-?-?-?-?- 37w 0d 192 lb 8 oz (+33 lb 8 oz) 104/73 Negative -?-?-?-?-?-?-?-?-?-?-?-?- Negative 143 38 Cephalic 1 -?-?-?-?-?-?-?-?-?-?-?-?- -No VB, LOF or reg CTX. -No VB, LOF or reg CTX. Go od FM 08/22/24 -?-?-?-?-?-?-?-?-?-?-?-?- 38w 0d 193 lb 8 oz (+34 lb 8 oz) 113/78 Negative -?-?-?-?-?-?-?-?-?-?-?-?- Negative 140 39 Cephalic 1 .5 -?-?-?-?-?-?-?-?-?-?-?-?- 70 -2 KW- no vb/ lof/ctx. good fm. had growth US and AC 97%. recommended 1 hour gct. and declined. 08/25/24 -?-?-?-?-?-?-?-?-?-?-?-?- 38w 3d 193 lb 6 oz (+34 lb 6 oz) 105/74 Negative -?-?-?-?-?-?-?-?-?-?-?-?- Negative 150 39 Cephalic 3 -?-?-?-?-?-?-?-?-?-?-?-?- 80 -2 JV- no lof , vaginal bleeding, or dec fm. planning 39 week IOL due to LGA and favorable cervix. ROS Constitutional Constitutional: Denies change in weight, fatigue, fever(s), headache(s), poor appetite or weakness Eyes Eyes: Denies blurry vision, change in vision, seeing flashes or spots in vision ENT HEENT: Denies dizziness, headache(s), loss taste/smell or sore throat Cardiovascular Cardiovascular: Denies chest pain, dizziness, dyspnea, irregular heart rhythm, leg edema, palpitations, rapid heart rate or vomiting Respiratory/Chest Respiratory/Chest: Denies chest tightness, cough, dyspnea or breast pain Gastrointestinal Gastrointestinal: Denies abdominal pain, anorexia, constipation, cramping, diarrhea, hemorrhoids, vomiting or weight changes Genitourinary Genitourinary: Denies dysuria, flank pain, genital lesions, genital pain, urinary frequency or urinary urgency Musculoskeletal Musculoskeletal: Denies back pain, difficulty walking, joint pain, limited range of motion, muscle cramps or numbness Integumentary Integumentary: Denies lesions or unusual bruising Neurologic Neurologic: Denies abnormal movements, abnormal speech, dizziness, numbness, seizure-like activity or syncope Psychiatric Psychiatric: Denies anxiety, behavioral changes, change in appetite, change in libido, cognitive impairment, confusion, depression, difficulty concentrating, hallucinations or suicidal thoughts Endocrine Endocrinology: Denies excessive sweating, polydipsia or polyuria Hematologic/Lymphatic Hematologic/Lymphatic: Denies easy bleeding, easy bruising or lymphadenopathy Allergic/Immunologic Allergic/Immunologic: Denies itchy eyes, lip swelling, seasonal rhinorrhea, rhinitis, throat swelling, tongue swelling, eczemia, wheezing or asthma Vital Signs Vital Signs Vital Signs: 08/29/24 07:30 08/29/24 07:30 Pulse Rate 96 Blood Pressure 119/72 BP Systolic 119 BP Diastolic 72 Weight Weight: 194 lb Body Mass Index (BMI) 35.4 Physical Exam Const alert, oriented x3, no apparent distress and healthy appearing General Appearance: cooperative; Negative for anxious HEENT normocephalic Face and Sinus: normal facial exam Eyes EOMs intact bilaterally and no scleral icterus General Eye: normal appearance of both eyes Neck full ROM and supple Lymph Lymphatic: no lymphadenopathy noted Chest Chest: abnormal inspection of the chest Resp normal respiratory effort Effort and Inspection: able to speak in complete sentences Cardio regular rate GI soft to palpation and non-tender Inspection: gravid Palpation: soft; Negative for tender Back/Spine no CVA tenderness Extremity normal to inspection, full ROM and no clubbing, cyanosis or edema General Extremity: Negative for calf tenderness or edema Skin Lesions: no lesions Rashes: no rashes Psych mental status grossly normal Labs Labs Labs: Blood Type A POSITIVE Antibody Screen NEGATIVE Hct 40.0 % (37-47) Hgb 12.8 g/dL (12.0-15.0) Obstetrics Ultrasound Syphilis Total Ab Non-reactive Rubella IgG Antibody Reactive (Nonreactive) Hep Bs Antigen Non-Reactive (Nonreactive) Hepatitis C Antibody Non-Reactive (Nonreactive) Chlamydia DNA (MADDI) Negative (Negative) N.gonorrhoeae DNA (MADDI) Negative (Negative) HIV 1&2 Antibody Non-Reactive (Nonreactive) Glucose 1 Hr 50 gm 130 mg/dL (70-140) Gest Glucose Tolerance MG/DL Group B Strep DNA Negative (Negative) Rhogam given: No Assessment & Plan (1) LGA (large for gestational age) fetus: COMMENT: 38 week visit showed an AC in the 97th%- discuss 39 week IOL vs rpt gct (may be too late to do this) (2) Circumvallate placenta: QUALIFIERS: Trimester: third trimester Qualified Code(s): O43.113 - Circumvallate placenta, third trimester COMMENT: MFM recommends growth US in third trimester q 4 weeks starting 28 weeks with MFM only (3) Hypothyroid: QUALIFIERS: Hypothyroidism type: unspecified Qualified Code(s): E03.9 - Hypothyroidism, unspecified COMMENT: increased Synthroid. (4) Loss of consciousness: COMMENT: After WITH EACH DELIVERY X3. not related to epidural, vasovagal. (5) Supervision of normal : QUALIFIERS: Normal : other normal Trimester: third trimester Qualified Code(s): Z34.83 - Encounter for supervision of other normal , third trimester COMMENT: PRR , ALBINA 09/05, PC: Rom Booth & Veronica, : Leigha (6) : QUALIFIERS: Weeks of gestation: 38 weeks Qualified Code(s): Z3A.38 - 38 weeks gestation of COMMENT: GBS Negative, Discussed genetic/carrier testing PLAN: Plan Patient presents IOL, plan management for with pitocin/AROM. Pain management: plans epidural. GBS negative. Management of any complications: none I have reviewed the [facility] and made any clinically relevant updates.
[2024-08-29 08:06] LABS: Absolute Lymphocyte Count 1.85 X10^3/uL (0.83-4.51); Absolute Neutrophil Count 11.2 X10^3/uL (2.0-7.7); Basophil# 0.04 X10^3/uL; Basophil% 0.3 % (0-1); Eosinophil# 0.12 X10^3/uL; Eosinophils% 0.9 % (0-5); Hematocrit 36.1 % (37-47); Hemoglobin 12.1 g/dL (12.0-15.0); Lymphocyte # 1.85 X10^3/ul (0.83-4.51); Lymphocyte % 13.3 % (19-41); Mean Corp Hgb Conc 33.5 g/dL (32-36); Mean Corpuscular Hgb 28.9 pg (27.0-32.0); Mean Corpuscular Volume 86.2 fL (81-99); Mean Platelet Vol. 10.5 fl (6.2-12.0); Monocyte# 0.59 X10^3/uL; Monocyte% 4.3 % (0-10); NRBC Flagged by Analyzer 0 % (0-5); Neutrophil # 11.18 X10^3/uL (2.7-7.7); Neutrophil % 80.5 % (47-70); Platelet Count 169 K/mm3 (150-450); RBC Distribution Width SD 43.8 fl (35.1-43.9); Red Blood Count 4.19 M/mm3 (4.2-5.4); White Blood Count 13.9 K/mm3 (4.4-11.0)
[2024-08-29 08:38] LABS: Syphilis Antibodies Non-reactive
[2024-08-29] MEDS: Lactated Ringers 1,000 ML 999 ML IV (10:02)
[2024-08-29] MEDS: fentaNYL-bupivacaine (epidural) 100 ML BAG EPIDURAL (11:26)
--- NOTE | 2024-08-29 13:22 | NURSING ---
1228 pt nearly passed out from being on her back for AROM- decision made to place a cain cath instead of intermittent cath d/t pts affinity for passing out by dr watkins
[2024-08-29] MEDS: Ondansetron 4 MG/2 ML Vial IV (15:31)
[2024-08-29] MEDS: Oxytocin 15 Units/NS 250ml 15 UNITS/250 ML IV.SOLN 83 UNITS IV (18:01)
--- NOTE | 2024-08-29 18:01 | EX.PCM.OBVAG ---
Assessment & Plan (1) LGA (large for gestational age) fetus: COMMENT: 38 week visit showed an AC in the 97th%- discuss 39 week IOL vs rpt gct (may be too late to do this) (2) Circumvallate placenta: QUALIFIERS: Trimester: third trimester Qualified Code(s): O43.113 - Circumvallate placenta, third trimester COMMENT: MFM recommends growth US in third trimester q 4 weeks starting 28 weeks with MFM only (3) Supervision of normal : QUALIFIERS: Normal : other normal Trimester: third trimester Qualified Code(s): Z34.83 - Encounter for supervision of other normal , third trimester COMMENT: PRR , ALBINA 09/05, PC: Rom Booth & Veronica, : Leigha (4) : QUALIFIERS: Weeks of gestation: 38 weeks Qualified Code(s): Z3A.38 - 38 weeks gestation of COMMENT: GBS Negative, Discussed genetic/carrier testing (5) Hypothyroid: QUALIFIERS: Hypothyroidism type: unspecified Qualified Code(s): E03.9 - Hypothyroidism, unspecified COMMENT: increased Synthroid. (6) Loss of consciousness: COMMENT: After WITH EACH DELIVERY X3. not related to epidural, vasovagal. Maternal Data Information ALBINA Calculator Estimated Delivery Date Method Current WG Current Estimate 09/05/24 LMP (Certain) 39w 0d Gestational age: 39 weeks 0 days Vaginal Delivery Maternal Presentation Maternal Presentation: Elective Induction Type of Induction: Pitocin and Amniotomy Vaginal Delivery Information Procedure Performed: Spontaneous Vaginal Delivery Surgeon/Practitioner: Essence Cruz Date of Procedure: 08/29/24 Pre-Procedure Diagnosis: @ 39 weeks 0 days, suspect macrosomia Post-Procedure Diagnosis: @ 39 weeks 0 days, suspect macrosomia Type of anesthesia: Epidural Estimated Blood Loss: 400cc Time of Delivery: 17:26 Findings Description of procedure: Patient began pushing and delivered the head in the EMMANUEL presentation. The head was delivered atraumatically. There was a cord draped across the shoulder and reduced without difficulty. The anterior and posterior shoulders delivered without complication followed by the rest of the infant and the infant was placed on the maternal abdomen. Delayed cord clamping was employed for approximately 60 seconds. Cord was clamped and cut and gentle traction was applied to the cord and the placenta delivered spontaneously immediately following it was noted to be intact with three-vessel cord. The perineum and vagina were inspected and noted to have a 2nd degree perineal laceration. This was repaired with a 3-0 vicryl. EBL was 400cc. Patient and infant tolerated delivery well. 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
--- NOTE | 2024-08-29 18:05 | DCINST_ITS ---
Discharge Instructions Diet Discharge Diet: No restrictions Activity Discharge Activity: Return to Normal Activity, May Not Drive (while taking narcotic pain medications.) and May Shower May resume sexual activity in: 4-6 weeks Dressing / Incision Call your doctor if your incision/area has: Continuous Slow Oozing, Sudden Increased Bleeding, Increased Pain/ Swelling, Increased Redness and Foul Smelling Discharge Follow Up Care Please Follow Up With: Essence Cruz, DO When: Call [phone] to make an appointment with your doctor in 6 weeks. If you had elevated blood pressure or 4th degree laceration, you will need to be seen in 2 weeks. Test Results: Test results from this visit will be discussed in further detail at your follow- up appointment, if applicable. Discharge Plan Admission Admit Date/Time: 08/29/24 07:24 Attending Provider: Essence Cruz Primary Care Provider: Floyd Riley Discharge Orders/Prescriptions Prescriptions: No Action levothyroxine 150 mcg capsule 200 mcg PO DAILY DHA 200 mg capsule 200 mg PO DAILY levothyroxine 200 mcg tablet 200 mcg PO DAILY Referrals / Follow Up: Floyd Riley MD [Primary Care Provider] -
[2024-08-30] VITALS (8 sets, daily range): BP systolic 102–115; BP diastolic 55–68; PULSE 75–91; RESP 16–18; TEMP 36.4–37.1; O2SAT 97–98
[2024-08-30] MEDS: Levothyroxine 100 MCG Tablet 200 MCG PO (05:08)
[2024-08-30] MEDS: Acetaminophen 500 MG Tablet 1000 MG PO ×2 (05:10→12:45)
--- NOTE | 2024-08-30 08:31 | PCM.PN.OB ---
Subjective Subjective Patient doing well without complaints. Tolerating PO. Ambulating and voiding without difficulty. Feeding well. Denies chest pain, shortness of breath, calf pain/swelling, fevers, chills, lightheadedness. Objective Data Objective Data Vital Signs: Vital Signs Temp Pulse Resp BP Pulse Ox O2 Del Method 98.7 F 75 18 102/55 L 98 Room Air 08/30/24 05:20 08/30/24 05:20 08/30/24 05:20 08/30/24 05:20 08/30/24 05:20 08/30/24 05:20 Oxygen Delivery Method Room Air Weight: 194 lb Body Mass Index (BMI) 35.4 Intake & Output: Intake and Output for Last 24 Hours 08/28/24 08/29/24 08/30/24 23:59 23:59 23:59 Intake Total 1961.64 / 1961.64 Output Total 1400 / 1400 500 / 500 Balance 561.64 / 561.64 -500 / -500 Lab / Micro Data 08/29/24 07:45 Labs: Laboratory Results - last 24 hr 08/29/24 07:45: Syphilis Total Ab Non-reactive, Blood Type A POSITIVE, Antibody Screen NEGATIVE Physical Exam Const alert and oriented x3 HEENT normocephalic Eyes PERRL Neck full ROM Resp normal respiratory effort GI soft to palpation GI Narrative: FF below U Assessment & Plan (1) Spontaneous vaginal delivery: COMMENT: SHANNON BARAJAS PLAN: Plan s/p PPD # 1 1. routine post delivery care 2. breast feeding- support given 3. rh positive 4. rubella immune 5. home today
[2024-08-30] MEDS: Senna/Docusate Sodium 1 Tablet PO (09:11)
[2024-08-30] MEDS: Ibuprofen 600 MG Tablet PO ×2 (09:11→16:28)
== END 2024-08-30 18:30 | disposition home or self-care (01) | DRG 807 ==
PROVIDERS: Admitting Provider Obstetrics & Gynecology; PCP Family Medicine; Referring Provider Obstetrics & Gynecology; Visit Provider Obstetrics & Gynecology
DX: O36.63X0 Maternal care for excessive fetal growth, third trimester, not applicable or unspecified (principal); O99.284 Endocrine, nutritional and metabolic diseases complicating childbirth; E03.9 Hypothyroidism, unspecified; O99.214 Obesity complicating childbirth; O43.113 Circumvallate placenta, third trimester; Z79.890 Hormone replacement therapy; Z3A.38 38 weeks gestation of pregnancy; Z37.0 Single live birth
CPT/HCPCS: 59025; 59050; 85025; 86780; 86850; 86900; 86901; 99221; G0378; J2405

== ENCOUNTER → 2024-10-12 | Outpatient (CLI) | payer SELFPAY | END | disposition home or self-care (01) | LOC: BWCLAB 13:56 | PROVIDERS: PCP Family Medicine; Referring Provider Obstetrics & Gynecology; Visit Provider Obstetrics & Gynecology | DX: E03.9 Hypothyroidism, unspecified (principal) | CPT/HCPCS: 36415; 84443 ==

== ENCOUNTER → 2025-03-28 | Outpatient (CLI) | payer SELFPAY ==
[2025-03-28 12:39] LABS: Hematocrit 43.8 % (37-47); Hemoglobin 14.3 g/dL (12.0-15.0); Mean Corp Hgb Conc 32.6 g/dL (32-36); Mean Corpuscular Hgb 27.8 pg (27.0-32.0); Mean Platelet Vol. 11.7 fl (6.2-12.0); Platelet Count 175 K/mm3 (150-450); RBC Distribution Width CV 12.9 % (11.6-14.6); Red Blood Count 5.15 M/mm3 (4.2-5.4); White Blood Count 6.3 K/mm3 (4.4-11.0)
[2025-03-28 13:09] LABS: ALB/GLOB Ratio 1.6 RATIO (0.9-2.4); AST(SGOT) 16 U/L (<=31); Alanine Aminotransfer ALT/SGPT 14 U/L (<=34); Albumin, Serum 4.6 g/dL (3.5-5.0); Alkaline Phosphatase 84 U/L (35-104); Anion Gap 11 (5-15); BUN 17 mg/dL (4-19); BUN/Creat Ratio 22.6 RATIO (10-20); Calcium,Total 9.2 mg/dL (7.6-11.0); Carbon Dioxide 21.6 mmol/L (21.0-32.0); Chloride 105 mmol/L (98-108); Creatinine, Serum 0.77 mg/dL (0.70-1.20); EST Glomerular Filtration Rate 108 (>60); Globulin 2.9 g/dL (2.2-4.2); Glucose 81 mg/dL (70-99); Potassium 4.2 mmol/L (3.3-5.1); Protein, Total 7.5 g/dL (5.9-8.4); Sodium Level 138 mmol/L (133-145); Thyroid Stim Hormone (TSH) 0.284 uIU/mL (0.300-4.200); Total Bilirubin 0.38 mg/dL (0.00-1.30)
== END | disposition home or self-care (01) ==
PROVIDERS: PCP Family Medicine; Referring Provider Family Medicine; Visit Provider Family Medicine
DX: E03.9 Hypothyroidism, unspecified (principal)
CPT/HCPCS: 36415; 80053; 84439; 84443; 85027

== ENCOUNTER → 2025-05-01 | Outpatient (CLI) | payer SELFPAY | END | disposition home or self-care (01) | PROVIDERS: PCP Family Medicine; Referring Provider Family Medicine; Visit Provider Family Medicine | DX: E03.9 Hypothyroidism, unspecified (principal) | CPT/HCPCS: 36415; 84439 ==